=== PATIENT | male | born 1965 | race Caucasian/White ===

== ENCOUNTER 2019-05-17 05:25 | Inpatient (IN) ==
--- NOTE | 2019-03-19 08:43 | PAT Medication Instructions ---
Medication Instructions Date of Service March 19, 2019 Home Medications acetaminophen [Tylenol Extra Strength] 1,000 mg PO Q6H NEEDED aspirin [Aspir-81] 81 mg PO QAM hydrocodone-acetaminophen 1 tab PO Q6H NEEDED meloxicam 15 mg PO DAILY NEEDED tramadol 50 mg PO Q6H NEEDED ASK your surgeon for instructions meloxicam 15 mg PO DAILY NEEDED Take morning of surgery With a small sip of water, OTHERWISE NOTHING TO EAT OR DRINK AFTER MIDNIGHT: aspirin [Aspir-81] 81 mg PO QAM acetaminophen [Tylenol Extra Strength] 1,000 mg PO Q6H NEEDED (if needed) hydrocodone-acetaminophen 1 tab PO Q6H NEEDED (if needed; stop 4 hours before surgery) tramadol 50 mg PO Q6H NEEDED (if needed; stop 4 hours before surgery) Take evening before surgery acetaminophen [Tylenol Extra Strength] 1,000 mg PO Q6H NEEDED (if needed) hydrocodone-acetaminophen 1 tab PO Q6H NEEDED (if needed) tramadol 50 mg PO Q6H NEEDED (if needed) Other Notes If you have any questions please call us at [phone] or [phone] or [phone] or [phone]
--- NOTE | 2019-03-19 11:20 | Anesthesiology Consultation ---
Date of Service March 19, 2019 Assessment & Plan (1) Encounter for pre-operative examination: - No previous anesthesia records with intubations. - Does need updated labs prior to surgery. Will order for day of surgery. Chart Review Chart Review: Acceptable Risk for Surgery and Patient seen in Pre Admission Testing Consults Requested medical (Dr. Patel (04/30)) Patient was seen by PCP on 04/30 for preoperative clearance. Per note from this visit, "Patient will undergo bilateral hip replacement on 05/17. He currently is able to tolerate 4 METS of activity without cardiopulmonary symptoms, but is limited by his hip disease. He had pre-op evaluation at [facility] but I do not have access to this. If no significant issues on these studies, he will be medically maximize for OR." Teaching & Discussion Pre-Anesthesia Teaching/Discussion Notes: Instructed NPO after midnight before surgery, except medications with 15 cc of water. Medication instructions provided according to the PAT guidelines. History Surgery Operation Date: 05/09/19 10:35 Proposed Procedures p Right Total Hip Arthroplasty - Mason Uriarte MD Operation Date: 05/17/19 07:00 Proposed Procedures p Right Total Hip Arthroplasty - Cehco Pérez MD Operation Date: 05/17/19 09:20 Proposed Procedures p Bilateral Total Hip Arthroplasty Anterior - Sy Alberto DO Height/Weight Height: 5 ft 10.5 in Weight: 92.5 kg Allergies Allergy/AdvReac Type Severity Reaction Status Date / Time No Known Allergies Allergy Unknown Verified 03/16/19 14:08 Medications Home Medications Medication Instructions Recorded Confirmed Last Taken acetaminophen [Tylenol Extra 1,000 mg PO Q6H PRN 03/16/19 03/16/19 Unknown Strength] aspirin [Aspir-81] 81 mg PO QAM 03/16/19 03/16/19 Unknown hydrocodone-acetaminophen 1 tab PO Q6H PRN 03/16/19 03/16/19 Unknown meloxicam 15 mg PO DAILY PRN 03/16/19 03/16/19 Unknown tramadol 50 mg PO Q6H PRN 03/16/19 03/16/19 Unknown Past Medical History Medical History Hypertension BP RUNNING HIGHER CURRENTLY-NO MEDS Osteoarthritis Exercise / Class Metabolic Activity II 4-5 Yardwork/Stairs/Walk up hill (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 Was able to easily climb FOS due to hip pain. Denies CP or SOB. ) Past Family History Family History Mother Family history of diabetes mellitus Past Surgical History Surgical History History of hand surgery RIGHT-TENDONS History of urinary tract surgery REPAIR/RECONSTRUCTION URETHRAL SURGERY Past Anesthesia History No Hx of Anesthesia Complications and No Family Hx of Anesthesia Complications History of PONV No Hx of PONV and No Hx of Motion Sickness Social History Smoking Status: Current every day smoker tobacco type: cigarettes and smokeless tobacco Smoking cigarettes per day: 10 CIGS A DAY x 25-30 years Do You Dip or Chew Tobacco: Yes (1 CAN EVERY 2 DAYS X 40 YEARS) Hx Alcohol Use: Yes Alcohol type: beer, wine and hard liquor alcohol intake frequency: 3 or more drinks per day Alcohol Intake Frequency Comment: 4-5 DRINKS PER DAY Hx Substance Use: No Review of Systems Patient denies chest pain, shortness of breath, dyspnea on exertion, reflux, cough, wheezing, palpitations. +Joint Pain (Hip) Physical Exam Vital Signs BP: 157/94 P: 61 R: 18 T: 98.5 SPO2: 98% on RA ENMT Thyromental Distance: > or= 3.5 Finger Breadths (4) Mallampati Class: II Neck normal visual inspection and trachea midline; neck extension not limited Respiratory normal respiratory effort Auscultation: lungs clear to auscultation bilaterally Cardiovascular Rate/Rhythm: regular rate and regular rhythm Heart Sounds: no murmur Vessels: no carotid bruit Neurologic moves all extremities Psychiatric Orientation: alert and oriented x 3 Testing Laboratory Results 03/19/19 12:09 03/19/19 12:09 03/19/19 03/19/19 03/19/19 12:09 12:09 12:09 PT 10.3 INR 1.0 APTT 27.5 Hemoglobin A1c 5.5 Urine Color Urine Appearance Urine pH Ur Specific [place] Urine Protein Urine Glucose (UA) Urine Ketones Urine Nitrite Ur Leukocyte Esterase Urine WBC (Auto) Urine RBC (Auto) U Hyaline Cast (Auto) U Epithel Cells (Auto) Urine Bacteria (Auto) Blood Type B Positive Antibody Screen NEGATIVE 03/19/19 Unknown PT INR APTT Hemoglobin A1c Urine Color Yellow Urine Appearance Turbid A Urine pH 8.0 H Ur Specific [place] 1.019 Urine Protein Negative Urine Glucose (UA) Negative Urine Ketones Negative Urine Nitrite Negative Ur Leukocyte Esterase 1+ H Urine WBC (Auto) >30 H Urine RBC (Auto) 10-30 H U Hyaline Cast (Auto) 1-5 U Epithel Cells (Auto) 10-20 H Urine Bacteria (Auto) Negative Blood Type Antibody Screen Electrocardiogram Date: 03/19/19 Findings: + SB @ (57) and + no change from (03/07/13) Chest X-Ray Date: 03/19/19 Findings: + NAD FINDINGS: The bones soft tissues and hemidiaphragms are normal. The cardiomediastinal silhouette is normal. The lungs are clear. The pulmonary vasculature is normal. IMPRESSION: Negative chest.
--- NOTE | 2019-03-19 12:40 | XRay Report ---
XR chest Pre-admission PA/Lat CLINICAL HISTORY: pat preoperative COMPARISON STUDY: 03/07/2013 FINDINGS: The bones soft tissues and hemidiaphragms are normal. The cardiomediastinal silhouette is n ormal. The lungs are clear. The pulmonary vasculature is normal. IMPRESSION: Negative chest. The above report was generated using voice recognition software. It may contain grammatical, syntax or spelling errors. Electronically signed by: Iván Barclay M.D. 03/19/2019 12:39 PM
[2019-03-19 13:13] LABS: Basophils # (auto) 0.01 K/uL (0-0.2); Basophils % (auto) 0.1 %; Eosinophils # (auto) 0.08 K/uL (0-0.5); Hematocrit (blood only) 46.5 % (42-52); Hemoglobin 15.8 g/dL (14.0-18.0); Immature Granulocytes # (auto) 0.01 K/uL (0.00-0.02); Immature Granulocytes % (auto) 0.1 %; Lymphocytes # (auto) 1.11 K/uL (1.2-3.4); Lymphocytes % (auto) 14.2 %; Mean Corpuscular Volume 93.6 fL (80-100); Monocytes # (auto) 0.83 K/uL (0.11-0.59); Monocytes % (auto) 10.7 %; Neutrophils # (auto) 5.75 K/uL (1.4-6.5); Neutrophils % (auto) 73.9 %; Platelet Count 250 K/uL (130-400); RDW Coefficient of Variation 13.9 % (11.5-14.5); RDW Standard Deviation 47.8 fL (36.4-46.3); Red Blood Count 4.97 M/uL (4.7-6.1); White Blood Count 7.79 K/uL (4.8-10.8)
[2019-03-19 13:24] LABS: Partial Thromboplastin Time 27.5 Seconds (21.0-31.0); Prothrombin Time 10.3 Seconds (9.0-12.0)
[2019-03-19 13:29] LABS: Estimated Average Glucose 111 mg/dl; Hemoglobin A1C 5.5 % (4.5-5.6)
[2019-03-19 13:30] LABS: Albumin Level 3.8 gm/dl (3.4-5.0); BUN Creatinine Ratio 17.9 (10-20); Calcium 9.4 mg/dl (8.5-10.1); Creatinine Clr Calc Pharmacy 123.1 ml/min; Est GFR (African American) 118.2; Potassium 4.7 mmol/L (3.5-5.1)
[2019-03-19 14:12] LABS: Appearance Urine Turbid (Clear); Bacteria Urine Automated Negative (Negative); Bilirubin Urine Negative (Negative); Blood Urine 1+ (Negative); Color Urine Yellow; Glucose Urine UA Negative (Negative); Ketones Urine Negative (Negative); Leukocyte Esterase Urine 1+ (Negative); Nitrite Urine Negative (Negative); Protein Urine Negative (Negative); Specific Gravity Urine 1.019 (1.000-1.030); Urobilinogen Urine Negative (Negative); WBC Urine Automated >30 /hpf (0-5)
--- NOTE | 2019-05-16 15:06 | History & Physical Report ---
Date of Service May 16, 2019 Assessment & Plan (1) Degenerative joint disease of left hip: (2) Degenerative joint disease of right hip: (3) Bilateral hip joint arthritis: I have indicated the patient for bilateral anterior total hip replacements. The risks, benefits and complications of surgery were explained to the patient which include but not limited to infection, acute blood loss, DVT/PE, injury to nerves, vessels, bone, soft tissue, arthrofibrosis, chronic pain, failure of the prosthesis, hip dislocation, leg length discrepancy, need for additional surgery, cardiac and pulmonary events and . The patient wished to proceed with surgery and informed consent was obtained at this time. We will plan for Lovenox post-operatively for DVT prophylaxis. Upon discharge the patient will be discharged home with home health services. Appropriate clearances by PCP were obtained. History of Present Illness Chief Complaint: Bilateral hip pain/djd Primary Care Provider: Mercedez Patel DO The patient is a 54 year old male who presents with complaints of severe bilateral hip pain and DJD. The patient has failed outpatient conservative treatments to this point which included NSAIDs, corticosteroid injection R hip, declined L hip injection, home exercise, walking program, PT. The patient's pain and limited function have progressed to the point where they severely hinder their activities of daily living and they no longer tolerate exercise programs. They are requesting to proceed with total hip replacement surgery. Allergies Allergy/AdvReac Type Severity Reaction Status Date / Time No Known Allergies Allergy Unknown Verified 05/17/19 05:50 Home Medications Home Medications Medication Instructions Recorded Confirmed Type acetaminophen [Tylenol Extra 1,000 mg PO Q6H PRN 03/16/19 05/17/19 History Strength] aspirin [Aspir-81] 81 mg PO QAM 03/16/19 05/17/19 History hydrocodone-acetaminophen 1 tab PO Q6H PRN 03/16/19 05/17/19 History meloxicam 15 mg PO DAILY PRN 03/16/19 05/17/19 History tramadol 50 mg PO Q6H PRN 03/16/19 05/17/19 History Past Med/Surg History Medical History Hypertension BP RUNNING HIGHER CURRENTLY-NO MEDS Osteoarthritis Surgical History History of hand surgery RIGHT-TENDONS History of urinary tract surgery REPAIR/RECONSTRUCTION URETHRAL SURGERY Family History Mother Family history of diabetes mellitus Social History Preferred Language: Panamanian Communication Ability: Effective Construction Safety Manager Required: No Beliefs That Will Affect Care: None Current Living Situation: Spouse Other Information That Helps Us Care for You: No Feels Safe at Home: Yes Safety Concerns: Feels Safe At This Time Smoking Status: Current every day smoker Tobacco Type: cigarettes and smokeless tobacco Cigarettes Per Day: 10 CIGS A DAY x 25-30 years Do You Dip or Chew Tobacco: Yes (1 CAN EVERY 2 DAYS X 40 YEARS) Smoking End Date: 10 CIGS A DAY Second Hand Exposure: No Hx Alcohol Use: Yes Alcohol type: beer, wine and hard liquor Hx Substance Use: No Review of Systems Review of Systems: All systems reviewed & are unremarkable except as noted in HPI & below Constitutional: as per Subjective / HPI Physical Exam Physical Exam: RLE NVSI +EHL/FHL/TA/GS SILT grossly, +2 DP pulse, compartments soft NT, limited painful ROM, antalgic gait LLE NVSI +EHL/FHL/TA/GS SILT grossly, +2 DP pulse, compartments soft NT, limited painful ROM, antalgic gait Constitutional: WD/WN, vitals as above Eyes: PERRL, conjunctivae normal, anicteric sclerae ENMT: external ear and nose normal, oropharynx normal Neck: trachea midline, no thyromegaly Respiratory: normal respiratory effort, lungs clear to auscultation Cardiovascular: RRR, no murmur, no edema Gastrointestinal (Abdomen): normal bowel sounds, soft, nontender, no hepatosplenomegaly Musculoskeletal: no cyanosis or clubbing, extremities motor strength 5/5 Skin: no rashes, warm and dry Psychiatric: A+Ox3, euthymic affect Lymphatic: no cervical or axillary lymphadenopathy Results & Data Diagnostic Findings Multiple views of bilateral hips demonstrates severe DJD with complete loss of the joint space. +osteophytes, +sclerosis, +subchondral cysts.
--- OUTSIDE RECORDS SUMMARY | 2019-05-17 05:29 | External Medical Summary | Continuity of Care Document ---
:1965 Author Name Payal Chan Address Unavailable Unavailable , Care Team Providers Name Role Phone Yue NUNEZ [place]available [email or web address] Unavailable Unavailable Unavailable Unavailable Unavailable Problems Slowing of urinary stream (788.62) (R39.198) Incomplete emptying of bladder (788.21) (R33.9) Urethral stricture (598.9) Urinary hesitancy (788.64) (R39.11) Allergies and Adverse Reactions No Known Drug Allergies (Allergy) Medications No Reported Medications Refills: 0 Procedures History of Cystoscopy With Internal Urethrotomy Status: Completed History of Dilation Of Male Urethral Stricture Status: Completed History of Suprapubic Cystostomy Status: Completed Immunizations Immunizations not documented Family History Unknown Family Member Family history of Heart Disease (V17.49) Status: Active Comments: Family History Social History - Smoking Status Current every day smoker Plan of Treatment Planned Observations Planned Goals not documented Results No Known Results Results not documented Encounters Appointment; Mercedez Turner CRNP 16-Mar-2018 7:15 Encounter Diagnosis: Problem not documented
[2019-05-17] MEDS ORDERED: GABAPENTIN 900 MG DOSE PO SCH (06:00)
[2019-05-17] MEDS ORDERED: FAMOTIDINE 20 MG TAB PO SCH (06:00)
[2019-05-17] MEDS ORDERED: TRANEXAMIC ACID 1,000 MG **IV Pre-op IV SCH (06:00)
[2019-05-17] MEDS ORDERED: LR 500ML BOLUS, THEN 15ML/HR IV SCH (06:00)
[2019-05-17] MEDS ORDERED: CeleBREX 200 MG CAP PO SCH (06:00)
[2019-05-17] MEDS ORDERED: ACETAMINOPHEN 500 MG TAB PO SCH (06:00)
[2019-05-17] MEDS ORDERED: CEFAZOLIN 2000MG 2,000 MG/15 ML SYR IV SCH (06:00)
[2019-05-17] MEDS ORDERED: ROPIVACAINE 0.5% HCL/PF 150 MG, BUPIVACAINE 0.5% MPF 30 ML, EPINEPHrine 30MG/30ML (OR U... INFIL SCH (06:00)
[2019-05-17] MEDS ORDERED: dexAMETHasone 4 MG TAB PO SCH (06:00)
[2019-05-17 06:07] LABS: Hematocrit (blood only) 44.5 % (42-52); Hemoglobin 15.1 g/dL (14.0-18.0); Mean Corpuscular Volume 95.7 fL (80-100); Mean Platelet Volume 9.9 fL (7.4-10.4); Platelet Count 269 K/uL (130-400); RDW Coefficient of Variation 14.6 % (11.5-14.5); Red Blood Count 4.65 M/uL (4.7-6.1); White Blood Count 5.76 K/uL (4.8-10.8)
[2019-05-17 06:23] LABS: BUN Creatinine Ratio 25.5 (10-20); Calcium 8.7 mg/dl (8.5-10.1); Est GFR (African American) 122.7; Est GFR (Non-African American) 105.9; Potassium 4.1 mmol/L (3.5-5.1)
[2019-05-17] MEDS ORDERED: BUPIVACAINE 0.5 % 5 MG/1 ML PF 10ML VIAL ONE ×2 (06:26→11:08)
[2019-05-17] MEDS ORDERED: BACITRACIN INJ 50,000 UNIT VIAL ONE (06:29)
[2019-05-17] MEDS ORDERED: ORTHO JOINT ANESTHETIC ONE (06:29)
[2019-05-17 06:30] LABS: Mean Corpuscular Hgb Conc 33.9 g/dL (32-36)
[2019-05-17] MEDS ORDERED: TRANEXAMIC ACID 1,000 MG **IV Intra-op IV SCH (06:30)
--- NOTE | 2019-05-17 06:48 | History & Physical Bridge Note ---
Date of Service May 17, 2019 History & Physical Bridge Note I have examined the patient, reviewed the History & Physical and in the interval since the performance of the History & Physical I have noted the following changes of clinical significance: no changes noted
[2019-05-17] MEDS ORDERED: MIDAZOLAM HCL 1 MG/ML 2ML VIAL ONE ×3 (07:01→07:29)
[2019-05-17] MEDS ORDERED: fentaNYL citrate 100 MCG/2 ML VIAL ONE ×2 (07:01→10:22)
[2019-05-17] MEDS ORDERED: fentaNYL citrate 100 MCG/2 ML VIAL IV PRN (07:48)
[2019-05-17] MEDS ORDERED: ATROPINE SULFATE 0.1 MG/ML 10ML SYR IV PRN (07:48)
[2019-05-17] MEDS ORDERED: HYDROmorphone INJ 2 MG/ML SYR/VIAL IV PRN (07:48)
[2019-05-17] MEDS ORDERED: ePHEDrine sulfate 50 MG/ML AMP IV PRN (07:48)
[2019-05-17] MEDS ORDERED: HYDROmorphone INJ 2 MG/ML SYR/VIAL ONE (11:05)
[2019-05-17] MEDS ORDERED: DEXAMETHASONE SOD INJ 4 MG/ML VIAL ONE (11:08)
[2019-05-17] MEDS ORDERED: PROPOFOL IV EMULSION 10 MG/ML 20 ML VIAL IV ONE (11:08)
[2019-05-17] MEDS ORDERED: LIDOCAINE HCL 2% 2 ML VIAL/AMP(20MG/ML) INFIL ONE (11:08)
[2019-05-17] MEDS ORDERED: ONDANSETRON INJ 2 MG/ML 2 ML VIAL ONE (11:08)
[2019-05-17] MEDS ORDERED: CEFAZOLIN 250 MG/ML 1 GM VIAL ONE (11:18)
--- NOTE | 2019-05-17 11:26 | Post Operative Brief Note ---
Immediate Post Op Note v1 Date of Surgery May 17, 2019 Pre & Post Diagnosis Operation Date: 05/09/19 10:35 <No data on this case meets the specified criteria> Operation Date: 05/17/19 07:00 Pre-Op Diagnosis: Osteoarthritis Bilateral Hips Post-Op Diagnosis: Osteoarthritis Bilateral Hips Operation Date: 05/17/19 07:00 <No data on this case meets the specified criteria> Procedure Operation Date: 05/09/19 10:35 <No data on this case meets the specified criteria> Operation Date: 05/17/19 07:00 Actual Procedures p Anterior Bilateral Total Hip Arthroplasty(Bilateral) - Sy Alberto DO Operation Date: 05/17/19 07:00 <No data on this case meets the specified criteria> Surgeon Sy Alberto DO Engine Test Cell Technician Aj Wyatt Estimated Blood Loss 300 Findings Consistent with Post-Op Diagnosis Fluids 2000 CC LR Specimens left hip femoral head right hip femoral head Anesthesia Type Spinal MAC Complications none Disposition Disposition: Recovery Room Overlapping Procedure I was present for: the critical portions of procedure. I was immediately available: during the entire case. Back up surgeon: was not required during procedure.
--- NOTE | 2019-05-17 11:39 | Operative Report ---
Post Operative Report Pre & Post Diagnosis Operation Date: 05/09/19 10:35 <No data on this case meets the specified criteria> Operation Date: 05/17/19 07:00 Pre-Op Diagnosis: Osteoarthritis Bilateral Hips Post-Op Diagnosis: Osteoarthritis Bilateral Hips Operation Date: 05/17/19 07:00 <No data on this case meets the specified criteria> Procedure Operation Date: 05/09/19 10:35 <No data on this case meets the specified criteria> Operation Date: 05/17/19 07:00 Actual Procedures p Anterior Bilateral Total Hip Arthroplasty(Bilateral) - Sy Alberto DO Operation Date: 05/17/19 07:00 <No data on this case meets the specified criteria> Surgeon Sy Alberto DO Bead Flipper Aj Wyatt Estimated Blood Loss 300 Findings Consistent with Post-Op Diagnosis Fluids 2000 cc LR Specimens Left hip femoral head Right hip femoral head Anesthesia Type Spinal MAC Complications none Disposition Disposition: Recovery Room Indications The patient is a 54-year-old male who presents with severe progressive bilateral hip DJD who has failed outpatient conservative treatments. I indicated the patient for a anterior total hip replacement and the risks and benefits were explained in detail which include but not limited to infection, bleeding, blood clot, damage to surrounding bone, nerves, vessels, soft tissue, hip dislocation, failure of the prosthesis, leg length discrepancy, need for additional surgery and . The patient agreed to proceed with replacement of the hip and informed consent was obtained. Appropriate clearances were obtained. Description of Procedure Left hip COMPONENTS USED: [employer] hip system: Acetabulum size 56, femur size 10 high offset, femoral head 36 point +0, liner 5636, acetabular screw 25 mm x 1. Right hip COMPONENTS USED: [employer] hip system: Acetabulum size 56, femur size 10 high offset, femoral head 36+0, liner 5636, acetabular screw 25 mm x 1. DESCRIPTION OF PROCEDURE: Following satisfactory spinal anesthesia, the patient was placed supine on the OR table. The right leg was placed in the well leg faulkner and the left leg in the traction device. The left leg was prepared with ChloraPrep and draped sterilely. A surgical timeout was performed, patient identified and site jasson verified. Appropriate antibiotics were given. A standard anterior approach in the interval between the sartorius and tensor muscles was performed. Dissection was carried down through subcutaneous tissues. Electrocautery was utilized for hemostasis. Circumflex femoral vessels were identified, tied and ligated. The anterior capsular fat pad was removed and the capsulotomy was performed revealing the arthritic femoral neck and head. A femoral neck cut was made with reciprocating saw and the bone fragments removed. The acetabular self-retraining retractor was placed. Acetabular reaming was completed under fluoroscopic guidance, a 56 shell was impacted into an anatomic position and secured with a dome screw. Local anesthetic was placed and following irrigation, the polyethylene liner was placed. The femur was placed into position of external rotation, extension and adduction. Femoral canal was prepared up to the size 10 high offset. Trial reduction with a +0 neck length head showed good soft tissue tension, leg lengths restored, and good fit and fill of the proximal canal using fluoroscopic landmarks. The hip was dislocated. The trial component was removed. The final implant was placed. The hip was irrigated with sterile saline solution and reduced. A Betadine soak was performed. After 3 minutes, the hip was once more irrigated with copious sterile saline solution with bacitracin. Kamini-incisional soft tissue was injected utilizing [employer] which includes a combination of Ropivicaine 0.5% 150mg, Bupivicaine 0.5%/Epinephrine 1:200,000 30ml, Toradol 30mg, Dexamethasone 4mg, Ketamine 10mg, Clonidine 100mcg and NSS 30ml solution. The capsule was then closed with 1-0 Vicryl interrupted figure of eight sutures. The fascia was closed with a running suture of #1 Vicryl, the subcutaneous tissues with 2-0 Vicryl and the skin with a running subcuticular stitch of 3-0 V-Loc. Dermabond prineo and a dry dressing were applied. Upon completion of the left anterior total hip, the drapes were removed and the patient repositioned onto the OR table. Care was taken to inspect and pad all elliott prominences. The left leg was placed in the well leg faulkner and the right leg in the traction device. The right leg was prepared with ChloraPrep and draped sterilely. A second surgical timeout was performed, patient identified and site jasson verified. Appropriate antibiotics were given prior to the start of the case. A standard anterior approach in the interval between the sartorius and tensor muscles was performed. Dissection was carried down through subcutaneous tissues. Electrocautery was utilized for hemostasis. Circumflex femoral vessels were identified, tied and ligated. The anterior capsular fat pad was removed and the capsulotomy was performed revealing the arthritic femoral neck and head. A femoral neck cut was made with reciprocating saw and the bone fragments removed. The acetabular self-retraining retractor was placed. Acetabular reaming was completed under fluoroscopic guidance, a 56 shell was impacted into an anatomic position and secured with a dome screw. Local anesthetic was placed and following irrigation, the polyethylene liner was placed. The femur was placed into position of external rotation, extension and adduction. Femoral canal was prepared up to the size 10 high offset. Trial reduction with a +0 neck length head showed good soft tissue tension, leg lengths restored, and good fit and fill of the proximal canal using fluoroscopic landmarks. The hip was dislocated. The trial component was removed. The final implant was placed. The hip was irrigated with sterile saline solution and reduced. A Betadine soak was performed. After 3 minutes, the hip was once more irrigated with copious sterile saline solution with bacitracin. Kamini-incisional soft tissue was injected with the remaining [employer] [place] [employer] which includes a combination of Ropivicaine 0.5% 150mg, Bupivicaine 0.5%/Epinephrine 1:200,000 30ml, Toradol 30mg, Dexamethasone 4mg, Ketamine 10mg, Clonidine 100mcg and NSS 30ml solution. The capsule was then closed with 1-0 Vicryl interrupted figure of eight sutures. The fascia was closed with a running suture of #1 Vicryl, the subcutaneous tissues with 2-0 Vicryl and the skin with a running subcuticular stitch of 3-0 V-Loc. Dermabond prineo and a dry dressing were applied. The patient tolerated the procedure well and was transported to PACU in stable condition. Due to the complex nature of the procedure, the entire surgery was performed with the operational assistance of Aj Wyatt PA-C. The salon shampoo assistant, under direct supervision, was involved in the actual performance of all aspects of the surgical procedure including patient positioning, hemostasis, tissue retraction, instrument management and wound closure. I attest to the content of the Intraoperative Record and any orders documented therein. Any exceptions are noted below.
--- NOTE | 2019-05-17 12:20 | Orthopedic Progress Note ---
Date of Service May 17, 2019 Assessment & Plan (1) Degenerative joint disease of left hip: (2) Degenerative joint disease of right hip: (3) Bilateral hip joint arthritis: Status post bilateral anterior total hip arthroplasty -Ancef x24 -DVT prophylaxis: SCDs, teds, Lovenox daily -Weight-bear as tolerates bilateral lower extremities -PT/OT -Postoperative x-ray pending -A.m. labs -DC planning: Home with home health Subjective Post Operative Progress Note Patient seen in PACU, comfortable, denies complaints, pain well controlled, no acute issues. Still feeling effects of spinal anesthesia. Review of Systems Review of Systems: All systems reviewed & are unremarkable except as noted in HPI & below Constitutional: as per Subjective / HPI Physical Exam Physical Exam: RLE exam limited secondary to spinal anesthesia, +2 DP pulse, compartments soft NT, dressing cdi. LLE exam limited secondary to spinal anesthesia, +2 DP pulse, compartments soft NT, dressing cdi. Constitutional: WD/WN, vitals as above Results & Data Vital Signs (Past 12 Hours) Vital Signs Temp Pulse Pulse Pulse Resp BP BP 05/17/19 12:10 52 L 16 126/80 05/17/19 12:06 48 L 15 115/77 05/17/19 12:05 53 L 20 05/17/19 12:01 49 L 13 05/17/19 12:00 51 L 17 118/79 05/17/19 11:57 53 L 17 05/17/19 11:56 55 L 23 120/76 05/17/19 11:54 36.6 C 53 L 60 15 102/56 L 102/56 L 05/17/19 05:43 36.7 C 59 L 18 BP Pulse Ox 05/17/19 12:10 100 05/17/19 12:06 100 05/17/19 12:05 100 05/17/19 12:01 99 05/17/19 12:00 98 05/17/19 11:57 99 05/17/19 11:56 97 05/17/19 11:54 97 05/17/19 05:43 164/101 H 95
--- NOTE | 2019-05-17 12:23 | Anesthesiology Progress Note ---
Date of Service May 17, 2019 Anesthesia Post Procedure Vital Signs Vital Signs: Temp Pulse Pulse Pulse Resp BP BP 05/17/19 12:10 52 L 16 126/80 05/17/19 12:06 48 L 15 115/77 05/17/19 12:05 53 L 20 05/17/19 12:01 49 L 13 05/17/19 12:00 51 L 17 118/79 05/17/19 11:57 53 L 17 05/17/19 11:56 55 L 23 120/76 05/17/19 11:54 36.6 C 53 L 60 15 102/56 L 102/56 L 05/17/19 05:43 36.7 C 59 L 18 BP Pulse Ox 05/17/19 12:10 100 05/17/19 12:06 100 05/17/19 12:05 100 05/17/19 12:01 99 05/17/19 12:00 98 05/17/19 11:57 99 05/17/19 11:56 97 05/17/19 11:54 97 05/17/19 05:43 164/101 H 95 Pain Intensity Bilateral Hip: Pain Intensity: 7 Transfer of Care Handoff Completed per policy Notes Mental Status: alert / awake / arousable and participated in evaluation Patient Amnestic to Procedure: Yes Nausea / Vomiting: adequately controlled Pain: adequately controlled Airway Patency, RR, SpO2: stable & adequate BP & HR: stable & adequate Hydration State: stable & adequate Neuraxial Anesthesia: was administered and sensory block is resolving Anesthetic Complications: no major complications apparent
--- NOTE | 2019-05-17 12:27 | Fluoroscopy Report ---
FL hip LT 1V CLINICAL HISTORY: 54 years-old Male presenting with B/L HIP ARTHROPLASTY. TECHNIQUE: 2 fluoroscopic image(s) recorded as part of an intraoperative procedure. COMPARISON: None. FINDINGS/IMPRESSION: Postsurgical changes of total left hip arthroplasty. No malalignment. Please see surgical report for further details. Dose area product (mGy.cm^2): 2.7364. Fluoroscopy time: 49.1 seconds. Number or time of high level fluoroscopy (HLF), digital spot, or digital subtraction images: 0. Electronically signed by: Jelani Paris M.D. 05/17/2019 12:26 PM
--- NOTE | 2019-05-17 12:41 | XRay Report ---
XR hip BI w PEL1V CLINICAL HISTORY: 54 years-old Male presenting with IN PACU - A/P PELVIS and LATERAL HIP . TECHNIQUE: Single frontal view of the pelvis and crosstable lateral views of the bilateral hips were obtained. COMPARISON: None. FINDINGS: Postsurgical changes of total bilateral hip arthroplasty. No malalignment. No periprosthetic fracture . Soft tissue emphysema consistent with the recent postsurgical setting. Bony pelvis is otherwise int act. Sacroiliac joints and pubic symphysis congruent. No radiographic soft tissue abnormality. IMPRESSION: Expected postsurgical appearance status post total bilateral hip arthroplasties. Electronically signed by: Jelani Paris M.D. 05/17/2019 12:39 PM
--- NOTE | 2019-05-17 12:49 | Fluoroscopy Report ---
FL hip RT 1V CLINICAL HISTORY: 54 years-old Male presenting with B/L HIP ARTHROPLASTY. TECHNIQUE: 2 fluoroscopic image(s) recorded as part of an intraoperative procedure. COMPARISON: None. FINDINGS/IMPRESSION: Postsurgical changes of total bilateral hip arthroplasty. Please see surgical report for further details. Dose area product (mGy.cm^2): 3.0152. Fluoroscopy time: 1 minute 1.2 seconds. Number or time of high level fluoroscopy (HLF), digital spot, or digital subtraction images: 0. Electronically signed by: Jelani Paris M.D. 05/17/2019 12:47 PM
[2019-05-17] MEDS ORDERED: NALOXONE HCL 0.4 MG/1 ML VIAL/CARP IV PRN (12:58)
[2019-05-17] MEDS ORDERED: BISACODYL 10 MG SUPP PR PRN (12:58)
[2019-05-17] MEDS ORDERED: SODIUM CHLORIDE 0.9% 1000ML 1,000 ML IV SCH (12:58)
[2019-05-17] MEDS ORDERED: HYDROmorphone INJ 0.5 MG/0.5 ML SYR IV PRN (12:58)
[2019-05-17] MEDS ORDERED: METOCLOPRAMIDE HCL INJ 5 MG/ML 2 ML VIAL IV PRN (12:58)
[2019-05-17] MEDS ORDERED: ONDANSETRON INJ 2 MG/ML 2 ML VIAL IV PRN (12:58)
[2019-05-17] MEDS ORDERED: MAGNESIUM HYDROXIDE SUSP 30 ML UDC PO PRN (12:58)
[2019-05-17] MEDS: KETOROLAC 30 MG/ML VIAL IV SCH ×2 (14:12→20:55)
[2019-05-17] MEDS: ACETAMINOPHEN 500 MG TAB PO SCH ×2 (14:12→22:06)
[2019-05-17] MEDS: CEFAZOLIN 2000MG 2,000 MG/15 ML SYR IV SCH ×2 (15:28→23:34)
[2019-05-17] MEDS: DOCUSATE SODIUM 100 MG CAP PO SCH (20:56)
[2019-05-17] MEDS ORDERED: SENNA 8.6 MG TAB PO SCH (21:00)
[2019-05-18] MEDS: KETOROLAC 30 MG/ML VIAL IV SCH ×2 (02:55→08:21)
[2019-05-18] MEDS: OXYCODONE HCL IR 5 MG TAB (IMMEDIATE RELEASE) PO PRN ×3 (02:59→13:50)
[2019-05-18] MEDS: ACETAMINOPHEN 500 MG TAB PO SCH ×2 (06:04→13:48)
[2019-05-18 07:07] LABS: Eosinophils # (auto) 0.01 K/uL (0-0.5); Eosinophils % (auto) 0.1 %; Hematocrit (blood only) 36.1 % (42-52); Hemoglobin 12.1 g/dL (14.0-18.0); Immature Granulocytes # (auto) 0.05 K/uL (0.00-0.02); Immature Granulocytes % (auto) 0.3 %; Lymphocytes # (auto) 0.85 K/uL (1.2-3.4); Lymphocytes % (auto) 5.4 %; Mean Corpuscular Hgb Conc 33.5 g/dL (32-36); Mean Platelet Volume 10.1 fL (7.4-10.4); Monocytes # (auto) 1.78 K/uL (0.11-0.59); Monocytes % (auto) 11.4 %; Neutrophils # (auto) 12.91 K/uL (1.4-6.5); Neutrophils % (auto) 82.8 %; Platelet Count 225 K/uL (130-400); RDW Coefficient of Variation 14.3 % (11.5-14.5); RDW Standard Deviation 49.3 fL (36.4-46.3)
[2019-05-18 07:36] LABS: BUN Creatinine Ratio 25.2 (10-20); Calcium 8.3 mg/dl (8.5-10.1); Creatinine Clr Calc Pharmacy 122.5 ml/min; Est GFR (African American) 117.6; Est GFR (Non-African American) 101.5; Potassium 4.3 mmol/L (3.5-5.1)
[2019-05-18] MEDS: DOCUSATE SODIUM 100 MG CAP PO SCH (08:49)
[2019-05-18] MEDS ORDERED: MULTIVITAMIN TAB PO SCH (09:00)
[2019-05-18] MEDS ORDERED: ENOXAPARIN INJ 40 MG/0.4 ML SYR SQ SCH (09:00)
--- NOTE | 2019-05-18 09:13 | Anesthesiology Progress Note ---
Date of Service May 18, 2019 Anesthesia Post Procedure Vital Signs Vital Signs: Temp Pulse Pulse Pulse Pulse Resp BP 05/18/19 06:51 36.9 C 61 18 05/18/19 02:58 36.7 C 60 14 05/17/19 23:43 36.9 C 55 L 16 05/17/19 19:23 36.7 C 61 16 05/17/19 16:03 36.6 C 53 L 16 05/17/19 15:00 36.6 C 59 L 18 05/17/19 13:49 53 L 18 05/17/19 13:22 36.6 C 50 L 18 05/17/19 12:50 36.5 C 47 L 18 05/17/19 12:30 46 L 15 118/70 05/17/19 12:25 45 L 13 111/76 05/17/19 12:21 50 L 11 L 126/78 05/17/19 12:20 57 L 18 126/78 05/17/19 12:16 49 L 15 126/90 05/17/19 12:10 52 L 16 126/80 05/17/19 12:06 48 L 15 115/77 05/17/19 12:05 53 L 20 05/17/19 12:01 49 L 13 05/17/19 12:00 51 L 17 118/79 05/17/19 11:57 53 L 17 05/17/19 11:56 55 L 23 120/76 05/17/19 11:54 36.6 C 53 L 60 15 102/56 L BP BP Pulse Ox 05/18/19 06:51 166/95 H 98 05/18/19 02:58 145/88 H 98 05/17/19 23:43 153/89 H 97 05/17/19 19:23 155/98 H 97 05/17/19 16:03 132/81 99 05/17/19 15:00 142/89 H 97 05/17/19 13:49 135/87 99 05/17/19 13:22 129/84 99 05/17/19 12:50 129/78 100 05/17/19 12:30 100 05/17/19 12:25 100 05/17/19 12:21 100 05/17/19 12:20 100 05/17/19 12:16 100 05/17/19 12:10 100 05/17/19 12:06 100 05/17/19 12:05 100 05/17/19 12:01 99 05/17/19 12:00 98 05/17/19 11:57 99 05/17/19 11:56 97 05/17/19 11:54 102/56 L 97 Notes Mental Status: alert / awake / arousable and participated in evaluation Nausea / Vomiting: adequately controlled Pain: adequately controlled Airway Patency, RR, SpO2: stable & adequate BP & HR: stable & adequate Hydration State: stable & adequate Neuraxial Anesthesia: sensory block resolved
--- NOTE | 2019-05-18 09:21 | Progress Note ---
DATE: 05/18/2019 SUBJECTIVE: The patient is postop day 1 status post anterior bilateral total hip arthroplasties. Currently, the patient is sitting in his chair at the bedside and is awake and alert and oriented. He has no complaints at this time. He states that he does have a little more swelling on the left side than the right. He denies any shortness of breath, chest pain or lightheadedness and denies any calf tenderness. He is hoping to go home today. OBJECTIVE: VITAL SIGNS: Show BP 166/95, pulse 61, respirations 18, temperature 36.9. EXTREMITIES: Dressings are clean, dry and intact. Calves were soft, nontender. Neurovascularly intact. Toes were mobile and both hips appear located. Hemoglobin is 12.1. ASSESSMENT: Postoperative day 1 status post anterior bilateral total hip arthroplasties. PLAN: The patient will be started on PT, OT protocols today. We will continue DVT prophylaxis with enoxaparin, SCDs and CRISTÓBAL hose and continue current pain management. DISCHARGE PLANNING: The patient is hoping to go home today and we will see how he progresses with his physical therapy before making any decisions. Addedum: Progressing well. Pain controlled. Stable. Plan for dc today. VIANEY
[2019-05-18] MEDS ORDERED: CeleBREX 200 MG CAP PO SCH (21:00)
--- NOTE | 2019-05-20 10:00 | Discharge Summary ---
Date of Service May 20, 2019 Admission HPI Per Admitting Provider The patient is a 54 year old male who presents with complaints of severe bilateral hip pain and DJD. The patient has failed outpatient conservative treatments to this point which included NSAIDs, corticosteroid injection R hip, declined L hip injection, home exercise, walking program, PT. The patient's pain and limited function have progressed to the point where they severely hinder their activities of daily living and they no longer tolerate exercise programs. They are requesting to proceed with total hip replacement surgery. Principal Diagnosis Bilateral anterior total hip replacements Discharge Exam RLE NVSI +EHL/FHL/TA/GS SILT grossly, +2 DP pulse, compartments soft NT, dressing cdi. LLE NVSI +EHL/FHL/TA/GS SILT grossly, +2 DP pulse, compartments soft NT, dressing cdi. Constitutional WD/WN, vitals as above Discharge Data Allergies Allergy/AdvReac Type Severity Reaction Status Date / Time No Known Allergies Allergy Unknown Verified 05/17/19 05:50 Consultations 05/18/19 08:00 Consult Case Management - Discharge Planning Routine Procedures Performed Operation Date: 05/09/19 10:35 <No data on this case meets the specified criteria> Operation Date: 05/17/19 07:00 Actual Procedures p Anterior Bilateral Total Hip Arthroplasty(Bilateral) - Sy Alberto DO Operation Date: 05/17/19 07:00 <No data on this case meets the specified criteria> Ordered Studies 05/17/19 07:00 FL fluoroscopy <1hr Routine FL hip LT 1V Routine FL hip RT 1V Routine Hospital Course (1) Degenerative joint disease of left hip: (2) Degenerative joint disease of right hip: (3) Bilateral hip joint arthritis: The patient is a 54 -year-old male who presents with long standing history of severe bilateral hip DJD and failed outpatient conservative treatments including NSAIDs, bracing, injections and , physical therapy, home walking/exercise program. The patient's symptoms have progressed to the point where it has been difficult to perform even normal activities of daily living. I indicated the patient for a bilateral anterior total hip arthroplasty, the risks, benefits and complications of the procedure include but not limited to infection, bleeding, damage to bone, nerves, vessels, surrounding soft tissue, may develop blood clots, loss of function, leg length discrepancy, dislocation, failure of the components, loosening of the components, the need for additional surgery and . The patient wished to proceed with surgery at this time and informed consent was obtained. Hospital Course: On 05/17/19 the patient was taken to the operating room, adequate anesthesia administered and underwent bilateral anterior total hip arthroplasty. The patient tolerated the procedure well and was taken to the PACU in stable condition. Post-operatively the patient was started on a DVT ppx medication and given appropriate IV antibiotics. Consults were placed to physical therapy, occupational therapy and case management. On POD#1, the patient did well overnight and their pain was well controlled. Labs were drawn and the Hgb was 12.1. Post operative drop in hgb due to [place]-operative blood loss and dilutional effect. Patient asymptomatic. The patient progressed well with PT. Dressings were changed at this time and the incision was clean, dry and intact. The patients hospital stay was relatively uneventful and they were deemed stable by the orthopedic team and consultants to be discharged home with on 05/18/19. Discharge Instructions: Upon discharge the patient may weight bear as tolerates through their operative extremities. They were instructed to keep the incision clean and dry at all times. The patient may shower but should not submerge the incision, avoid bathing, pools and hot tubes. The patient was given a script for pain medication and should take as instructed. The patient was given a script for DVT ppx Lovenox 40mg daily and should take as directed. The patient was instructed to not drive or travel for long distances until cleared to do so. If the patient develops any symptoms of fevers, chills, nausea, vomiting, increased redness, swelling, pain or drainage from the surgical site, they should notify the office and/or proceed to the nearest emergency room. The patient should follow up in 10-14 days after surgery for their routine post-operative follow-up appointment and should call the office to confirm the date and time. Status post bilateral anterior total hip arthroplasty -Ancef x24 -DVT prophylaxis: SCDs, teds, Lovenox daily -Weight-bear as tolerates bilateral lower extremities -PT/OT -Postoperative x-ray pending -A.m. labs -DC planning: Home with home health Total Time Total Time Spent Total Time Spent (In Minutes): 30 minutes Total Time Includes: Examination of the Patient, Discharge Planning, Medication Reconciliation and Communication With Other Providers Discharge Plan Discharge Items Patient Disposition: Home - Home Health Services Reason For Visit: BILATERAL HIP OSTEOARTHRITIS Discharge Diagnosis: Bilateral anterior total hip replacements Condition: Good Discharge Goals: Decrease discomfort, Improve function, Increase independence and Therapeutic intervention Activity: Per 'Additional Instructions' section Lifting: Wait until after follow-up appointment Bathing Comment: No bathing, pools or hot tubs Sexual Activity: Wait until after follow-up appointment Exercise/Sports: Wait until after follow-up appointment Driving/Machine Use Comment: No driving till cleared by your surgeon Weightbearing: Left weightbearing and Right weightbearing Non-emergency contact: Primary Care Provider and Surgeon Call non-emergency contact if: you have any medication questions, your symptoms worsen, your pain is not controlled, your pain is worsening, your pain is unusual for you, your pain is concerning for you, you have a fever, your temperature is above 101, your wound has increased redness, your wound has increased drainage and your wound pain has increased Follow-up/Referrals: Mercedez Patel DO [Primary Care Provider] - Diet: Regular Addtl Provider Instructions: ACTIVITY RECOMMENDATIONS: SELF CARE INSTRUCTIONS AFTER TOTAL HIP REPLACEMENT : Direct Anterior Approach Until the incision and soft tissues around your hip have healed, there is a possibility that the hip prosthesis could dislocate. A. Hip flexion ( Up & Down out of chair or steps ) may be difficult. This is normal. B. Numbness in front of the thigh is also normal for a few weeks. C. Use hand rails when walking on stairs. D. Wear low heeled shoes with non-slip soles. E. Be sure that your floors are free of things that could trip you - throw rugs, electrical cords, small objects. Avoid wet and waxed floors, especially with crutches and canes. F. Try to walk several times a day with rest periods between. G. Continue with all the exercises taught to you in the hospital. Again, make walking a part of your daily routine. SPECIAL CARE INSTRUCTIONS: VERY IMPORTANT TO READ AND REVIEW A. You may still be at risk for phlebitis and blood clots. 1. Wear surgical stockings (CRISTÓBAL hose) for 2 weeks after surgery to improve circulation and reduce swelling. 2. Take Lovenox 40mg daily for 4 weeks or as directed by your doctor. This is your blood thinner. 3. High risk patients may be prescribed a stronger blood thinner if necessary. 4. If you are on Coumadin normally, your family doctor/food service specialist should monitor your blood work. Expect a phone call the day of or the day after bloodwork is drawn to adjust your dosage. B. You must take antibiotics before having dental work, bladder, bowel and other surgery. Your doctor will provide you with a permanent card to carry describing precautions. C. Call [facility] [place] if you have a fever, redness or swelling around the incision, cloudy drainage from incision, or sudden increase in pain in your hip, not relieved by your regular pain medication. D. Please call the office at if you have any concerns or questions about your operation or recovery. * YOU MAY SHOWER, NO TUB BATHS UNTIL CLEARED BY YOUR DOCTOR. - Keep an extra close eye on the top portion of your incision. Be sure to keep clean & dry. * WEAR CRISTÓBAL HOSE 20 HOURS PER DAY FOR 2 WEEKS. * YOU MAY PROGRESS FROM A WALKER, TO A CANE, TO INDEPENDENT AT YOUR OWN PACE. * MOST PATIENTS WILL HAVE HOME NURSING FOR THERAPY. IF YOU DECIDE TO DO OUTPATIENT PHYSICAL THERAPY, PLEASE SCHEDULE THIS 3 TIMES PER WEEK. * DERMABOND Prineo- This is a mesh tape dressing that is covered with glue. It should remain in place until the incision is properly healed, usually 10-14 da ys. This dressing is designed to naturally slough off. You may trim the excess mesh tape as it peels off. Incision may be briefly wet in a shower. Dry immediately by blotting with a clean, dry towel. Do not bath or swim until instructed by your doctor. Do not scratch, rub, or pick at the dressing. Do not apply any topical ointments or lotions until dressing is completely removed and/or instructed by your doctor. There may be a small piece of suture material at one end of your incision. Do not pull or trim this. If it is bothersome or catching on clothing, you may cover it with a band-aid. FOLLOW UP VISIT: If appointment is not already scheduled: Please call [facility] to make a follow-up appointment for 2 weeks after your surgery at . Follow up with your Primary Care Physician for Blood Pressure check in the next week. Prescriptions: New celecoxib [Celebrex] 200 mg Capsule 200 mg PO BID PRN (Reason: pain) Qty: 28 RF: 0 acetaminophen [Tylenol Extra Strength] 500 mg Tablet 1,000 mg PO Q8 PRN (Reason: pain) Qty: 90 RF: 0 enoxaparin 40 mg/0.4 mL Syringe 40 mg subcut Q24H Qty: 28 RF: 0 oxycodone 5 mg Tablet 5 mg PO Q6H MDD 6 tabs PRN (Reason: pain) Qty: 30 RF: 0 sennosides [Senokot] 8.6 mg Tablet 17.2 mg PO HS PRN (Reason: constipation) Qty: 28 RF: 0 Continued tramadol 50 mg Tablet 50 mg PO Q6H PRN (Reason: Pain) RF: 0 Discontinued meloxicam 15 mg Tablet 15 mg PO DAILY PRN (Reason: Pain) RF: 0 aspirin [Aspir-81] 81 mg Tablet,Delayed Release (Dr/Ec) 81 mg PO QAM RF: 0 hydrocodone-acetaminophen 5-325 mg Tablet 1 tab PO Q6H PRN (Reason: Pain) RF: 0 acetaminophen [Tylenol Extra Strength] 500 mg Tablet 1,000 mg PO Q6H PRN (Reason: Pain) RF: 0 Visit Report Forms: Smoking Cessation Stand-Alone Forms: [facility] [email or web address], Opioid Pain Management, Work/School Release (Inpt) Dereck/Other Patient Handouts: Enoxaparin Sodium Porcine Solution for injection, Safety Hip Into and Out Bed, Safety Hip Into and Out Car, Precautions Hip Discharge Orders: Discharge Order (Routine); Ordered 05/18/19 Ordered By: Black Roberts Admission Data Admit Date/Time: 05/17/19 12:08 Attending Provider: Sy Alberto Admit Provider: Sy Alberto Primary Care Provider: Mercedez Patel Service: Surgical Services Other Interventions: Discharge Summary Assessment (RN) Last Done: 05/18/19 13:18 DC Date/Time DO NOT enter until pt leaves facility: 05/18/19 14:42
== END 2019-05-18 14:42 | disposition home health service (06) | DRG 462 ==
LOC: ASU 05:25 → 3E 12:08

== ENCOUNTER 2023-03-30 20:47 | Inpatient (IN) ==
--- NOTE | 2023-03-30 21:07 | Emergency Department Note ---
Impression & Plan NSTEMI (non-ST elevated myocardial infarction), Nicotine dependence, Hypertensive emergency ED Provider Note NAME: KAREN TIAN AGE: 58 SEX: M : 1965 ARRIVES VIA: Walk-In INFORMANT: Patient, ED PROVIDER(S): Casey Li MD CHIEF COMPLAINT: Chest pain MEDICAL DECISION MAKING: Patient presents due to concern for chest pain. Initial EKG with no obvious STEMI but could have hyperacute T waves. Repeat EKG was ordered for approximate 10 to 15 minutes thereafter. Currently 5 out of 10 chest pain with no associated nausea vomiting or diaphoresis. IV was established and blood work was obtained. The patient was ordered full dose aspirin as well as sublingual nitro. Tylenol was also ordered to avoid possible headache from the nitro. Repeat EKG with no Initial blood work with a normal white count H&H and platelet count. The patient's kidney function is unremarkable. Initial troponin of 39.8. The patient has been chest pain-free COVID-negative. 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 I did speak with the on-call hospitalist service Dr. Krishnamurthy to see him he did message the on- call grain trader Dr. Moctezuma to inform them that the patient would be admitted to the medicine service. Critical Care: I have personally spent 45 minutes of critical care time in direct management of this patient. This includes bedside care, interpretation of diagnostic studies, and testing, discussion with consultants, patient, and family members, and other require inpatient management activities. This 45 minutes is in excess of all separately billable procedures. Prior /Outside records reviewed: None Differential diagnosis: Cardiac ischemia, aortic dissection, pulmonary embolism, pneumothorax, pneumonia, pericarditis, myocarditis, esophageal rupture, GERD, cholecystitis, pancreatitis, musculoskeletal, as well as other pathologies. Diagnostics, as interpreted by sd: ECG: Normal sinus rhythm, rate of 66 normal intervals normal axis no ST elevations with concavity, possible hyperacute T waves versus peaked T's V3 through V6. Repeat EKG interpreted by sd Sinus with PVCs, rate of 76, normal intervals normal axis, acuity of the T waves appear to be complete improved compared to prior completed Repeat EKG interpreted by me Sinus rhythm, rate of 63, normal intervals, left axis deviation no obvious ST elevations. T wave version in lead III. Cardiac monitoring: An order was placed for continuous cardiac monitoring. The monitor shows a rate of 72 with sinus rhythm. 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 The patient describes it as centralized and nonradiating although maybe he had clutched his left shoulder. Patient denies any overt exertional symptoms. Patient did not take anything for it at home. No cough or fever and the patient denies any prior history of known heart disease. Patient does have family history of heart attack and father and brother both in the 40s 65. The patient does chew and smoke tobacco and does drink alcohol. Patient states is currently 5 out of 10. Patient denies any infectious symptoms no leg swelling or calf pain. No prior history of blood clots PAST MEDICAL HISTORY: See Below PAST SURGICAL HISTORY: See Below SOCIAL HISTORY: See Below HOME MEDICATIONS: See Below ALLERGIES: See Below VITALS: See Below PHYSICAL EXAMINATION: GENERAL: NAD, wearing a mask, non-toxic. EYE EXAM: Normal conjunctiva. PERRL, no anisocoria and EOM's grossly intact w/o pain. NECK: Supple, no nuchal rigidity, no adenopathy, non-tender. No signs of meningismus. FROM of the neck with good chin to chest and neck extension. No stridor. LUNGS: Clear to auscultation. Normal chest wall mechanics. HEART: NSR, no MRG. ABDOMEN: Abdomen soft, non-tender, no masses, no rebound or guarding. BACK: No CVA TTP. SKIN: No rashes and no bruising. UPPER EXTREMITIES: Upper extremities are grossly normal. LOWER EXTREMITIES: Grossly normal, no edema. Negative Homans' sign bilaterally NEURO EXAM: A&O x3, cranial nerves II-XII grossly intact, normal speech, moves all 4 extremities. Past Med/Surg History Medical History Bilateral hip joint arthritis Hypertension started on lisinopril 12/07/21 Osteoarthritis Surgical History H/O bilateral hip replacements History of hand surgery RIGHT-TENDONS History of urinary tract surgery REPAIR/RECONSTRUCTION URETHRAL SURGERY Family History Mother Family history of diabetes mellitus Myocardial infarction Father Myocardial infarction Denies family history of Ovarian cancer Prostate cancer Breast cancer Colorectal cancer Social History Smoking Status: Current every day smoker Tobacco Type: Cigarettes Age Started Using Tobacco: 31; Cigarettes Per Day: 10 CIGS A DAY x 25-30 years; Second Hand Exposure: No; Do You Dip or Chew Tobacco: Yes; Tobacco Cessation Education Requested by Patient: No Hx Alcohol Use: Yes Alcohol type: hard liquor Hx Substance Use: No Preferred Language: Irish Communication Ability: Effective 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 Beliefs That Will Affect Care: None marital status: Current Living Situation: Spouse current occupational status: employed current occupation: self employeed How many Children do You have: 2 Other Information That Helps Us Care for You: No Feels Safe at Home: Yes Safety Concerns: Feels Safe At This Time Childhood Exposure to Second-Hand Smoke: Yes Diet: regular caffeine: Yes Dental Care, Regularly: Yes Physical Activity Frequency: Daily Seatbelt Use: never Sunscreen Use: No Assistive Devices: None Allergies Allergies Allergy/AdvReac Type Severity Reaction Status Date / Time No Known Allergies Allergy Unknown Verified 03/31/23 08:31 Home Meds Home Medications Medication Instructions Recorded Confirmed aspirin 81 mg tablet,delayed 81 mg PO DAILY 12/07/21 03/30/23 release Previous Rx's Medication Instructions Recorded acetaminophen 500 mg tablet 1,000 mg PO Q8 PRN pain #90 tabs 05/17/19 (Tylenol Extra Strength) Results & Data (ED) Vital Signs Vital Signs - 24 hr 03/30/23 21:00 03/30/23 21:14 03/30/23 21:15 Temperature 36.9 C Temperature Source Temporal Artery Scan Pulse Rate 66 64 Pulse Rate [Left Finger] 64 Pulse Rate from SpO2 Sensor Pulse Rhythm [Left Finger] Regular Pulse Strength [Left Finger] Normal Respiratory Rate 22 18 18 Respiratory Effort / Characteristics Non-Labored Non-Labored Respiratory Depth Normal Respiratory Pattern Regular Blood Pressure 231/151 H Blood Pressure Mean 177 Pulse Oximetry 99 100 100 Oxygen Delivery Method Room Air Room Air Room Air Sepsis Recent Fever Within 48 Hours No Sepsis New/Unexplained Change in Mental Status N/A Sepsis Action Taken by Nursing No Action Required 03/30/23 21:12 03/30/23 21:15 03/30/23 21:25 Temperature Temperature Source Pulse Rate 64 65 66 Pulse Rate [Left Finger] Pulse Rate from SpO2 Sensor 64 64 65 Pulse Rhythm [Left Finger] Pulse Strength [Left Finger] Respiratory Rate 16 20 15 Respiratory Effort / Characteristics Respiratory Depth Respiratory Pattern Blood Pressure 214/128 H Blood Pressure Mean 156 Pulse Oximetry 99 97 97 Oxygen Delivery Method Sepsis Recent Fever Within 48 Hours Sepsis New/Unexplained Change in Mental Status Sepsis Action Taken by Nursing 03/30/23 21:30 03/30/23 21:11 03/30/23 21:40 Temperature Temperature Source Pulse Rate 69 64 70 Pulse Rate [Left Finger] Pulse Rate from SpO2 Sensor 68 67 Pulse Rhythm [Left Finger] Pulse Strength [Left Finger] Respiratory Rate 16 17 Respiratory Effort / Characteristics Respiratory Depth Respiratory Pattern Blood Pressure 164/112 H 167/110 H Blood Pressure Mean 129 129 Pulse Oximetry 94 95 Oxygen Delivery Method Sepsis Recent Fever Within 48 Hours Sepsis New/Unexplained Change in Mental Status Sepsis Action Taken by Nursing 03/30/23 21:45 03/30/23 22:00 03/30/23 22:01 Temperature Temperature Source Pulse Rate 71 66 Pulse Rate [Left Finger] Pulse Rate from SpO2 Sensor 73 69 65 Pulse Rhythm [Left Finger] Pulse Strength [Left Finger] Respiratory Rate 16 15 Respiratory Effort / Characteristics Respiratory Depth Respiratory Pattern Blood Pressure 167/127 H 163/102 H Blood Pressure Mean 140 122 Pulse Oximetry 98 91 96 Oxygen Delivery Method Sepsis Recent Fever Within 48 Hours Sepsis New/Unexplained Change in Mental Status Sepsis Action Taken by Nursing 03/30/23 22:15 03/30/23 22:31 03/30/23 22:45 Temperature Temperature Source Pulse Rate 63 59 L 56 L Pulse Rate [Left Finger] Pulse Rate from SpO2 Sensor 62 59 L 58 L Pulse Rhythm [Left Finger] Pulse Strength [Left Finger] Respiratory Rate 14 18 15 Respiratory Effort / Characteristics Respiratory Depth Respiratory Pattern Blood Pressure 169/105 H 142/101 H 161/99 H Blood Pressure Mean 126 114 119 Pulse Oximetry 97 96 97 Oxygen Delivery Method Sepsis Recent Fever Within 48 Hours Sepsis New/Unexplained Change in Mental Status Sepsis Action Taken by Nursing 03/30/23 23:01 03/30/23 23:15 03/30/23 23:30 Temperature Temperature Source Pulse Rate 56 L 62 65 Pulse Rate [Left Finger] Pulse Rate from SpO2 Sensor 56 L 62 64 Pulse Rhythm [Left Finger] Pulse Strength [Left Finger] Respiratory Rate 15 16 15 Respiratory Effort / Characteristics Respiratory Depth Respiratory Pattern Blood Pressure 147/79 H 142/78 H 169/95 H Blood Pressure Mean 101 99 119 Pulse Oximetry 98 98 98 Oxygen Delivery Method Sepsis Recent Fever Within 48 Hours Sepsis New/Unexplained Change in Mental Status Sepsis Action Taken by Nursing 03/30/23 23:45 03/30/23 23:46 03/30/23 23:46 Temperature Temperature Source Pulse Rate 64 62 Pulse Rate [Left Finger] Pulse Rate from SpO2 Sensor 63 61 Pulse Rhythm [Left Finger] Pulse Strength [Left Finger] Respiratory Rate 17 17 Respiratory Effort / Characteristics Respiratory Depth Respiratory Pattern Blood Pressure 198/118 H Blood Pressure Mean 144 Pulse Oximetry 100 98 Oxygen Delivery Method Sepsis Recent Fever Within 48 Hours Sepsis New/Unexplained Change in Mental Status Sepsis Action Taken by Nursing 03/31/23 00:00 03/31/23 00:16 03/31/23 00:30 Temperature Temperature Source Pulse Rate 58 L Pulse Rate [Left Finger] Pulse Rate from SpO2 Sensor 58 L 63 71 Pulse Rhythm [Left Finger] Pulse Strength [Left Finger] Respiratory Rate 21 Respiratory Effort / Characteristics Respiratory Depth Respiratory Pattern Blood Pressure 116/90 150/97 H Blood Pressure Mean 98 114 Pulse Oximetry 98 98 95 Oxygen Delivery Method Sepsis Recent Fever Within 48 Hours Sepsis New/Unexplained Change in Mental Status Sepsis Action Taken by Nursing 03/31/23 00:46 Temperature Temperature Source Pulse Rate Pulse Rate [Left Finger] Pulse Rate from SpO2 Sensor 64 Pulse Rhythm [Left Finger] Pulse Strength [Left Finger] Respiratory Rate Respiratory Effort / Characteristics Respiratory Depth Respiratory Pattern Blood Pressure 147/105 H Blood Pressure Mean 119 Pulse Oximetry 96 Oxygen Delivery Method Sepsis Recent Fever Within 48 Hours Sepsis New/Unexplained Change in Mental Status Sepsis Action Taken by [facility] Medications Current Medication List: was personally reviewed by me Laboratory Data Attestation: I reviewed the patient's lab results. 03/30/23 21:11 03/30/23 21:11 Lab Results 03/30/23 03/30/23 03/30/23 Range/Units 21:11 21:11 21:11 WBC 6.53 (4.8-10.8) K/ul RBC 5.15 (4.70-6.10) M/uL Hgb 16.3 (14.0-18.0) g/dl Hct 47.8 (42.0-52.0) % MCV 92.8 (80.0-100.0) fL MCH 31.7 (25.0-34.0) pg MCHC 34.1 (32.0-36.0) g/dL RDW Std Deviation 46.9 H (36.4-46.3) fL RDW Coeff of Ben 13.6 (11.5-14.5) % Plt Count 263 (130-400) K/uL MPV 10.2 (9.4-12.4) fL Immature Gran % (Auto) 0.3 % Neut % (Auto) 65.8 % Lymph % (Auto) 20.1 % Dare % (Auto) 11.0 % Eos % (Auto) 2.5 % Baso % (Auto) 0.3 % Neut # (Auto) 4.30 (1.40-6.50) K/uL Lymph # (Auto) 1.31 (1.2-3.4) K/uL Dare # (Auto) 0.72 H (0.11-0.59) K/uL Eos # (Auto) 0.16 (0-0.50) K/uL Baso # (Auto) 0.02 (0-0.2) K/uL Immature Gran # (Auto) 0.02 (0.01-0.20) K/uL PT 10.5 (9.0-12.0) Seconds INR 1.0 (0.9-1.1) APTT 31.7 H (21.0-31.0) Seconds PTT Ratio 1.1 Sodium 135 L (136-145) mmol/L Potassium 3.9 (3.5-5.1) mmol/L Chloride 100 (98-107) mmol/L Carbon Dioxide 26 (21-32) mmol/L Anion Gap 9 (3-11) BUN 19 (6-23) mg/dl Creatinine 0.88 (0.6-1.4) mg/dl Est Cr Clr Drug Dosing 119.9 ml/min Est GFR ( Amer) 110.5 ml/min Est GFR (Non-Af Amer) 95.4 ml/min BUN/Creatinine Ratio 21.6 H (10-20) Glucose 91 (70-99(Fasting)) mg/dl Calcium 10.5 H (8.6-10.3) mg/dl Total Bilirubin 0.6 (0.2-1.0) mg/dl AST 28 (13-39) U/L ALT 38 (7-52) U/L Alkaline Phosphatase 83 (34-104) U/L Troponin I High Sens 39.8 H (0-20) pg/ml Total Protein 8.3 (6.0-8.3) gm/dl Albumin 4.9 (3.4-5.0) gm/dl Globulin 3.4 (2.5-4.0) gm/dl Albumin/Globulin Ratio 1.4 (0.9-2) Lipase 17 (11-82) U/L SARS-CoV-2, RNA, NAAT (NEGATIVE) 03/30/23 Range/Units 21:17 WBC (4.8-10.8) K/ul RBC (4.70-6.10) M/uL Hgb (14.0-18.0) g/dl Hct (42.0-52.0) % MCV (80.0-100.0) fL MCH (25.0-34.0) pg MCHC (32.0-36.0) g/dL RDW Std Deviation (36.4-46.3) fL RDW Coeff of Ben (11.5-14.5) % Plt Count (130-400) K/uL MPV (9.4-12.4) fL Immature Gran % (Auto) % Neut % (Auto) % Lymph % (Auto) % Dare % (Auto) % Eos % (Auto) % Baso % (Auto) % Neut # (Auto) (1.40-6.50) K/uL Lymph # (Auto) (1.2-3.4) K/uL Dare # (Auto) (0.11-0.59) K/uL Eos # (Auto) (0-0.50) K/uL Baso # (Auto) (0-0.2) K/uL Immature Gran # (Auto) (0.01-0.20) K/uL PT (9.0-12.0) Seconds INR (0.9-1.1) APTT (21.0-31.0) Seconds PTT Ratio Sodium (136-145) mmol/L Potassium (3.5-5.1) mmol/L Chloride (98-107) mmol/L Carbon Dioxide (21-32) mmol/L Anion Gap (3-11) BUN (6-23) mg/dl Creatinine (0.6-1.4) mg/dl Est Cr Clr Drug Dosing ml/min Est GFR ( Amer) ml/min Est GFR (Non-Af Amer) ml/min BUN/Creatinine Ratio (10-20) Glucose (70-99(Fasting)) mg/dl Calcium (8.6-10.3) mg/dl Total Bilirubin (0.2-1.0) mg/dl AST (13-39) U/L ALT (7-52) U/L Alkaline Phosphatase (34-104) U/L Troponin I High Sens (0-20) pg/ml Total Protein (6.0-8.3) gm/dl Albumin (3.4-5.0) gm/dl Globulin (2.5-4.0) gm/dl Albumin/Globulin Ratio (0.9-2) Lipase (11-82) U/L SARS-CoV-2, RNA, NAAT NEGATIVE (NEGATIVE) Administered Medications Aspirin (Aspirin 81 Mg Ectab) 81 mg PO [facility] Stop: 04/01/23 09:01 Last Admin: 03/31/23 07:45 Dose: 81 mg Documented By: Admin: 03/31/23 02:58 Dose: 81 mg Documented By: BARBARA Heparin Sodium/Dextrose (Heparin Sodium/Dextrose) 25,000 units in 500 mls @ 24 mls/hr IV .[id number] [facility]; Protocol Stop: 04/29/23 22:59 Last Titration: 03/31/23 15:07 Dose: 1,200 units/hr, 24 mls/hr Documented By: OMauro Co-signed By: KGY Titration: 03/31/23 07:10 Dose: 1,200 units/hr, 24 mls/hr Documented By: BARBARA Co-signed By: KGY Admin: 03/30/23 23:24 Dose: 1,000 units/hr, 20 mls/hr Documented By: MIKE Co-signed By: MWJim Metoprolol Succinate (Metoprolol Succ 25mg Ext Rel Tab) 12.5 mg PO [facility] Stop: 04/30/23 08:59 Last Admin: 03/31/23 07:46 Dose: 12.5 mg Documented By: INESSA Discontinued Medications Acetaminophen (Acetaminophen 500 Mg Tab) 1,000 mg PO NOW STA Stop: 03/30/23 21:18 Last Admin: 03/30/23 21:23 Dose: 1,000 mg Documented By: MIKE Aspirin (Aspirin Chew 324 Mg) 324 mg PO NOW STA Stop: 03/30/23 21:18 Last Admin: 03/30/23 21:22 Dose: 324 mg Documented By: MIKE Fentanyl Citrate (Fentanyl Citrate Pf 100 Mcg/2 Ml Vial) Confirm Administered Dose 100 mcg .ROUTE .STK-MED ONE Stop: 03/31/23 08:36 Last Increment: 03/31/23 09:22 Dose: 75 mcg Documented By: SONJA Heparin Sodium (Porcine) (Heparin Sod (Porcine) 1000 Unit/Ml) 4,000 units IV NOW ONE Stop: 03/31/23 07:31 Last Admin: 03/31/23 07:46 Dose: 4,000 units Documented By: INESSA Co-signed By: ALEJANDRA Heparin Sodium (Porcine) (Heparin (Porcine) 1000 Unit/Ml 10 Ml (Industrial Truck Operator Use Only)) Confirm Administered Dose 10,000 units .ROUTE .STK-MED ONE Stop: 03/31/23 08:36 Last Admin: 03/31/23 09:22 Dose: 5,000 units Documented By: SONJA Heparin Sodium/Sodium Chloride (Heparin In Nss Infusion 1000 Unit/500 Ml (2 U/Ml) Bag) Confirm Administered Dose 3,000 units IV .STK-MED ONE Stop: 03/31/23 08:36 Last Admin: 03/31/23 09:23 Dose: 3,000 units Documented By: BAKARI Magnesium Sulfate/Dextrose (Magnesium Sulfate / D5w) 1 gm in 100 mls @ 50 mls/hr IV Q2H [facility]LEIGH Stop: 03/31/23 09:14 Last Infusion: 03/31/23 09:38 Dose: 0 mls/hr Documented By: Admin: 03/31/23 07:28 Dose: 50 mls/hr Documented By: Infusion: 03/31/23 07:28 Dose: 50 mls/hr Documented By: Admin: 03/31/23 05:34 Dose: 50 mls/hr Documented By: BARBARA Lisinopril (Lisinopril 5 Mg Tab) 5 mg PO NOW ONE Stop: 03/31/23 05:01 Last Admin: 03/31/23 04:57 Dose: 5 mg Documented By: BARBARA Midazolam HCl (Midazolam Hcl 1 Mg/Ml 2ml Vial) Confirm Administered Dose 2 mg .ROUTE .STK-MED ONE Stop: 03/31/23 08:36 Last Increment: 03/31/23 09:23 Dose: 1 mg Documented By: SONJA Midazolam HCl (Midazolam Hcl 1 Mg/Ml 2ml Vial) Confirm Administered Dose 2 mg .ROUTE .STK-MED ONE Stop: 03/31/23 09:08 Last Admin: 03/31/23 09:24 Dose: 2 mg Documented By: SONJA Nicardipine HCl (Nicardipine Hcl Inj 2.5 Mg/Ml 10 Ml Amp) Confirm Administered Dose 25 mg .ROUTE .ST-MED ONE Stop: 03/31/23 08:36 Last Admin: 03/31/23 09:24 Dose: 25 mg Documented By: BAKARI Nitroglycerin (Nitroglycerin Sl 0.4 Mg/Tab Tab) 0.4 mg SL Q5M PRN PRN Reason: Chest Pain Stop: 04/29/23 21:16 Last Admin: 03/30/23 21:40 Dose: 0.4 mg Documented By: Admin: 03/30/23 21:34 Dose: 0.4 mg Documented By: Admin: 03/30/23 21:24 Dose: 0.4 mg Documented By: MIKE Nitroglycerin/Dextrose (Nitroglycerin/D5w 100mcg/Ml 20ml Syr) Confirm Administered Dose 2,000 mcg .ROUTE .[facility] ONE Stop: 03/31/23 08:37 Last Admin: 03/31/23 09:24 Dose: 2,000 mcg Documented By: BAKARI Potassium Chloride (Potassium Chloride Crtab 20 Meq Tabcr) 40 meq PO NOW STA Stop: 03/31/23 05:11 Last Admin: 03/31/23 05:34 Dose: 40 meq Documented By: BARBARA Rosuvastatin Calcium (Rosuvastatin Calcium 20 Mg Tab) 20 mg PO NOW ONE Stop: 03/31/23 05:01 Last Admin: 03/31/23 04:57 Dose: 20 mg Documented By: BARBARA Imaging Data Radiologist's Impression: Chest X-Ray 05/31/23 21:11 SINGLE VIEW CHEST CLINICAL HISTORY: Atypical chest pain. FINDINGS: An AP, portable, upright chest radiograph is compared to study dated 03/27/2019. The heart is mildly enlarged noting atherosclerotic calcification of the thoracic aorta. The pulmonary vasculature is noncongested. There is mild elevation of the right hemidiaphragm and bibasilar atelectasis. No airspace consolidation or large pleural effusion is identified. No pneumothorax is seen. The bony thorax is grossly intact. Arthritic change is seen in the shoulders. IMPRESSION: No acute cardiopulmonary abnormality. ACT 112: Negative or not required by law. Electronically signed by: Elijah Walsh M.D. 03/31/2023 7:08 AM Discharge Plan Visit Data Chief Complaint: Hypertension Stated Complaint: HBP,TIGHTNESS IN CHEST ED Provider: Casey Li Discharge Problem: NSTEMI (non-ST elevated myocardial infarction), Nicotine dependence, Hypertensive emergency Patient Disposition: Admitted As Inpatient Discharge Instructions Interventions: ED Discharge Assessment Last Done: 03/31/23 01:57
[2023-03-30] MEDS ORDERED: ACETAMINOPHEN 500 MG TAB PO STA (21:17)
[2023-03-30] MEDS ORDERED: ASPIRIN CHEW 324 MG PO STA (21:17)
[2023-03-30] MEDS: NITROGLYCERIN SL 0.4 MG/TAB TAB SL PRN ×3 (21:24→21:40)
[2023-03-30 22:04] LABS: Basophils # (auto) 0.02 K/uL (0-0.2); Basophils % (auto) 0.3 %; Eosinophils # (auto) 0.16 K/uL (0-0.50); Eosinophils % (auto) 2.5 %; Hematocrit (blood only) 47.8 % (42.0-52.0); Hemoglobin 16.3 g/dl (14.0-18.0); Immature Granulocytes # (auto) 0.02 K/uL (0.01-0.20); Immature Granulocytes % (auto) 0.3 %; Lymphocytes # (auto) 1.31 K/uL (1.2-3.4); Lymphocytes % (auto) 20.1 %; Mean Corpuscular Hemoglobin 31.7 pg (25.0-34.0); Mean Corpuscular Hgb Conc 34.1 g/dL (32.0-36.0); Mean Corpuscular Volume 92.8 fL (80.0-100.0); Mean Platelet Volume 10.2 fL (9.4-12.4); Monocytes # (auto) 0.72 K/uL (0.11-0.59); Neutrophils % (auto) 65.8 %; Platelet Count 263 K/uL (130-400); RDW Coefficient of Variation 13.6 % (11.5-14.5); RDW Standard Deviation 46.9 fL (36.4-46.3); Red Blood Count 5.15 M/uL (4.70-6.10); White Blood Count 6.53 K/ul (4.8-10.8)
[2023-03-30 22:23] LABS: Albumin Globulin Ratio 1.4 (0.9-2); Albumin Level 4.9 gm/dl (3.4-5.0); BUN Creatinine Ratio 21.6 (10-20); Bilirubin,Total 0.6 mg/dl (0.2-1.0); Calcium 10.5 mg/dl (8.6-10.3); Creatinine Clr Calc Pharmacy 119.9 ml/min; Est GFR (African American) 110.5 ml/min; Est GFR (Non-African American) 95.4 ml/min; Globulin 3.4 gm/dl (2.5-4.0); Potassium 3.9 mmol/L (3.5-5.1); Total Protein 8.3 gm/dl (6.0-8.3)
[2023-03-30 22:30] LABS: Troponin I High Sensitivity 39.8 pg/ml (0-20)
[2023-03-30 22:39] LABS: Partial Thromboplastin Ratio 1.1; Partial Thromboplastin Time 31.7 Seconds (21.0-31.0); Prothrombin Time 10.5 Seconds (9.0-12.0)
[2023-03-30] MEDS ORDERED: Heparin IV Adult Wt-Based Low-Dose *NO* Bolus Protocol IV ONE (22:53)
[2023-03-30] MEDS: HEPARIN SODIUM/DEXTROSE 25,000 UNITS/500 ML BAG IV SCH (23:24)
[2023-03-31] MEDS ORDERED: ACETAMINOPHEN 500 MG TAB PO PRN (02:17)
[2023-03-31] MEDS ORDERED: POLYETHYLENE (MIRALAX) 17 GM PACK PO PRN (02:17)
[2023-03-31] MEDS ORDERED: ALUMINUM/MAGNESIUM SUSP 30 ML UDC PO PRN (02:17)
[2023-03-31] MEDS ORDERED: NITROGLYCERIN SL 0.4 MG/TAB TAB SL PRN (02:17)
[2023-03-31] MEDS: ASPIRIN 81 MG ECTAB PO SCH ×2 (02:58→07:45)
[2023-03-31] MEDS ORDERED: ROSUVASTATIN CALCIUM 20 MG TAB PO ONE (05:00)
[2023-03-31] MEDS ORDERED: lisinopril 5 MG TAB PO ONE (05:00)
--- NOTE | 2023-03-31 05:00 | Communication Note ---
Date of Service: March 31, 2023 Pt troponin increased from 40 to 5400. Vitals 171/100, 69, 15, 36.3, 96% on RA. No chest pain, pt asleep at time I was alerted of troponin increase. Repeat EKG pending. Concern for NSTEMI based on initial presentation and now with increasing troponin. Given pt's risk factors of HTN, extensive smoking history and active tobacco use, obesity and FMH of early MO in first degree relatives, suspect he may need cardiac catheterization for further evaluation. I placed cardiology consult. I also ordered pt to be NPO in anticipation of potential catheterization. Rosuvastatin 20 mg and lisinopril 5 mg ordered to be given now. I held off on ordering metoprolol at present due to RN report of pt bradycardia, though sleeping. Metoprolol succinate 12.5 mg ordered for AM.
[2023-03-31] MEDS ORDERED: POTASSIUM CHLORIDE CRTAB 20 MEQ TABCR PO STA (05:10)
[2023-03-31] MEDS: MAGNESIUM SULFATE / D5W 1 GM/100 ML BAG IV SCH ×2 (05:34→07:28)
--- NOTE | 2023-03-31 05:36 | History & Physical Report ---
Date of Service March 31, 2023 Assessment & Plan (1) NSTEMI (non-ST elevated myocardial infarction): Plan: Patient presents to ED with complaints of acute onset of chest pain. Chest pain nonradiating and midsternal in location. Associated with no nausea vomiting but reports left shoulder discomfort Risk factors include hypertension and patient admits to smoking at least 20 years Family history significant for coronary artery disease. EKG does not show any ST changes and patient chest pain-free at this time. Initial high sensitive troponin 40 will trend levels Cardiology input from ED requested for possible cardiac catheterization. Transthoracic echo ordered Antiplatelet with aspirin close telemetry monitoring (2) Hypertension: Plan: Continue lisinopril add beta-blockade with metoprolol if heart rate permits Monitor blood pressure trend titrate meds as tolerated (3) Nicotine dependence: Plan: Patient admits to cigarette smoking for at least 20 years half pack a day Smoking cessation discussed with patient Nicotine replacement prn Admission and Anticipated Discharge Date Admission Date: March 31, 2023 History of Present Illness Chief Complaint: Patient presents to ED with complaints of chest pain Primary Care Provider: Fatmata Herron MD This is a 58-year-old male with past medical history significant history of hypertension, osteoarthritis who presents to the emergency department with complaints of chest pain. 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 Patient reports the pain is moderate to severe and nonradiating. Patient had some left shoulder discomfort as well associated with chest discomfort. Patient presented to the ED because he was concerned about the intensity of the pain and patient also reports that his family members has a history of cardiac disease. The time of evaluation in the ED patient chest pain and improved and 10 minutes after arrival to the ED patient reports improvement in chest pain. Patient denies any shortness of breath no fevers or chills reported no nausea vomiting reported Evaluation in the ED initially shows hyperacute T waves but no ST elevation noted. Repeat EKG did not show any ST or T wave changes. Initial high sensitive troponin elevated at 40. Cardiology contacted from ED Patient given aspirin and beta-jonathan is being admitted for further management of his chest pain with NSTEMI Allergies Allergy/AdvReac Type Severity Reaction Status Date / Time No Known Allergies Allergy Unknown Verified 03/30/23 22:44 Home Medications Medication Instructions Recorded Confirmed Type acetaminophen 500 mg tablet 1,000 mg PO Q8 PRN pain #90 tabs 05/17/19 03/30/23 Rx (Tylenol Extra Strength) aspirin 81 mg tablet,delayed 81 mg PO DAILY 12/07/21 03/30/23 History release Past Med/Surg History Medical History Bilateral hip joint arthritis Hypertension started on lisinopril 12/07/21 Osteoarthritis Surgical History H/O bilateral hip replacements History of hand surgery RIGHT-TENDONS History of urinary tract surgery REPAIR/RECONSTRUCTION URETHRAL SURGERY Family History Mother Family history of diabetes mellitus Myocardial infarction Father Myocardial infarction Denies family history of Ovarian cancer Prostate cancer Breast cancer Colorectal cancer Social History Smoking Status: Current every day smoker Tobacco Type: Cigarettes Age Started Using Tobacco: 31; Cigarettes Per Day: 10 CIGS A DAY x 25-30 years; Second Hand Exposure: No; Do You Dip or Chew Tobacco: Yes; Tobacco Cessation Education Requested by Patient: No Hx Alcohol Use: Yes Alcohol type: hard liquor Hx Substance Use: No Preferred Language: Kiswahili Communication Ability: Effective Legal Referee Required: No Beliefs That Will Affect Care: None marital status: Current Living Situation: Spouse current occupational status: employed current occupation: self employeed How many Children do You have: 2 Other Information That Helps Us Care for You: No Feels Safe at Home: Yes Safety Concerns: Feels Safe At This Time Childhood Exposure to Second-Hand Smoke: Yes Diet: regular caffeine: Yes Dental Care, Regularly: Yes Physical Activity Frequency: Daily Seatbelt Use: never Sunscreen Use: No Assistive Devices: Glasses Review of Systems Review of Systems: Constitutional-no fever or chills ENT-no blurred vision, no double vision, no epistaxis, no sore throat Respiratory- no shortness of breath noted with exertion. No wheezing Cardiac-presents with chest pain no palpitations GI-no nausea, vomiting, diarrhea, melena, hematochezia -no urinary retention, no urinary incontinence, no dysuria, no hematuria Musculoskeletal-no joint pain, no muscle tenderness Skin-no bruising, no rashes, no pruritus Neuro-no isolated weakness, no paresthesia, Physical Exam Physical Exam: Patient appears comfortable no chest pain at time of evaluation Head and ENT no thyroid enlargement trachea midline Cardiovascular S1-S2 are normal no S3 Lungs bilateral air entry fair no wheezing Abdomen soft nondistended no rebound tenderness Extremity shows trace edema Neurologically no focal deficits Skin shows no rash Results & Data Results & Data Vital Signs (Past 12 Hours) Vital Signs Temp Pulse Pulse Resp BP BP Pulse Ox 03/31/23 02:18 60 03/31/23 02:45 36.3 C L 69 15 171/100 H 96 03/31/23 01:46 56 L 14 149/90 H 96 03/31/23 01:30 61 15 154/105 H 96 03/31/23 01:15 151/98 H 95 03/31/23 01:45 57 L 03/31/23 01:00 157/108 H 95 03/31/23 00:46 147/105 H 96 03/31/23 00:30 150/97 H 95 03/31/23 00:16 116/90 98 03/31/23 00:00 58 L 21 98 03/30/23 23:46 62 17 98 03/30/23 23:46 198/118 H 03/30/23 23:45 64 17 100 03/30/23 23:30 65 15 169/95 H 98 03/30/23 23:15 62 16 142/78 H 98 03/30/23 23:01 56 L 15 147/79 H 98 03/30/23 22:45 56 L 15 161/99 H 97 03/30/23 22:31 59 L 18 142/101 H 96 03/30/23 22:15 63 14 169/105 H 97 03/30/23 22:01 66 15 163/102 H 96 03/30/23 22:00 71 16 91 03/30/23 21:45 167/127 H 98 03/30/23 21:40 70 17 167/110 H 95 03/30/23 21:11 64 03/30/23 21:30 69 16 164/112 H 94 03/30/23 21:25 66 15 214/128 H 97 03/30/23 21:15 65 20 97 03/30/23 21:12 64 16 99 03/30/23 21:15 64 18 100 03/30/23 21:14 64 18 100 03/30/23 21:00 36.9 C 66 22 231/151 H 99 O2 Del Method 03/31/23 02:18 03/31/23 02:45 Room Air 03/31/23 01:46 03/31/23 01:30 03/31/23 01:15 03/31/23 01:45 03/31/23 01:00 03/31/23 00:46 03/31/23 00:30 03/31/23 00:16 03/31/23 00:00 03/30/23 23:46 03/30/23 23:46 03/30/23 23:45 03/30/23 23:30 03/30/23 23:15 03/30/23 23:01 03/30/23 22:45 03/30/23 22:31 03/30/23 22:15 03/30/23 22:01 03/30/23 22:00 03/30/23 21:45 03/30/23 21:40 03/30/23 21:11 03/30/23 21:30 03/30/23 21:25 03/30/23 21:15 03/30/23 21:12 03/30/23 21:15 Room Air 03/30/23 21:14 Room Air 03/30/23 21:00 Room Air Laboratory Results Short CBC 03/30/23 Range/Units 21:11 WBC 6.53 (4.8-10.8) K/ul Hgb 16.3 (14.0-18.0) g/dl Hct 47.8 (42.0-52.0) % Plt Count 263 (130-400) K/uL BMP 03/30/23 21:11 Sodium 135 L Potassium 3.9 Chloride 100 Carbon Dioxide 26 BUN 19 Creatinine 0.88 Glucose 91 Calcium 10.5 H Liver Function 03/30/23 Range/Units 21:11 Total Bilirubin 0.6 (0.2-1.0) mg/dl AST 28 (13-39) U/L ALT 38 (7-52) U/L Alkaline Phosphatase 83 (34-104) U/L Albumin 4.9 (3.4-5.0) gm/dl Code Status & VTE Plan VTE Prophylaxis Plan VTE Prophylaxis will be ordered: Yes PG Care Time/CCT Total # of Minutes Spent Total Time Spent with Patient: Total time spent is greater than 50% in coordination of care (as documented) at patient's floor/unit and/or counseling patient: Coding Level of Care Code 43204 INT INP/OBS CARE MIN Diagnoses NSTEMI (non-ST elevated myocardial infarction) I21.4 Hypertension I10 Nicotine dependence F17.200
[2023-03-31] MEDS ORDERED: Heparin IV Adult Wt-Based Standard *NO* Bolus Protocol IV SCH (06:40)
[2023-03-31 06:52] LABS: Chol HDL Ratio 3.9 (0-5); Magnesium 2.1 mg/dl (1.7-2.4)
[2023-03-31] MEDS ORDERED: HEPARIN SODIUM/DEXTROSE 25,000 UNITS/500 ML BAG IV SCH (07:00)
[2023-03-31 07:04] LABS: Partial Thromboplastin Ratio 1.2; Partial Thromboplastin Time 33.3 Seconds (21.0-31.0)
--- NOTE | 2023-03-31 07:10 | XRay Report ---
SINGLE VIEW CHEST CLINICAL HISTORY: Atypical chest pain. FINDINGS: An AP, portable, upright chest radiograph is compared to study dated 03/27/2019. The heart i s mildly enlarged noting atherosclerotic calcification of the thoracic aorta. The pulmonary vasculatu re is noncongested. There is mild elevation of the right hemidiaphragm and bibasilar atelectasis. No airspace consolidation or large pleural effusion is identified. No pneumothorax is seen. The bony tho rax is grossly intact. Arthritic change is seen in the shoulders. IMPRESSION: No acute cardiopulmonary abnormality. ACT 112: Negative or not required by law. Electronically signed by: Elijah Walsh M.D. 03/31/2023 7:08 AM
[2023-03-31] MEDS ORDERED: HEPARIN SOD (PORCINE) 1000 UNIT/ML IV ONE ×2 (07:30→18:12)
[2023-03-31] MEDS: METOPROLOL SUCC 25MG EXT REL TAB PO SCH (07:46)
[2023-03-31 07:55] LABS: Troponin I High Sensitivity 9418.6 pg/ml (0-20)
--- NOTE | 2023-03-31 08:23 | Electrocardiogram Report ---
Test Reason : Blood Pressure : / mmHG Vent. Rate : 066 BPM Atrial Rate : 066 BPM P-R Int : 158 ms QRS Dur : 100 ms QT Int : 368 ms P-R-T Axes : 023 -37 017 degrees QTc Int : 385 ms Normal sinus rhythm Left axis deviation Acute Anterior infarct Abnormal ECG When compared with ECG of 19-MAR-2019 12:16, Criteria for Anterior infarct is now Present ST elevation now present in Anterior leads Confirmed by Derrick Soernson ([id number]) on 03/31/2023 8:22:59 AM Referred By: REFERRED SELF Confirmed By:Derrick Sorenson
--- NOTE | 2023-03-31 08:27 | Electrocardiogram Report ---
Test Reason : Blood Pressure : / mmHG Vent. Rate : 076 BPM Atrial Rate : 076 BPM P-R Int : 152 ms QRS Dur : 102 ms QT Int : 394 ms P-R-T Axes : -07 -43 -05 degrees QTc Int : 443 ms Sinus rhythm with occasional Premature ventricular complexes and PACs Left axis deviation Incomplete right bundle branch block Anterolateral infarct , age undetermined (cited on or before 30-MAR-2023) Abnormal ECG When compared with ECG of 30-MAR-2023 21:07, Premature ventricular complexes are now Present Serial changes of evolving Anterolateral infarct Present Confirmed by Derrick Sorenson ([id number]) on 03/31/2023 8:26:21 AM Referred By: REFERRED SELF Confirmed By:Derrick Sorenson
--- NOTE | 2023-03-31 08:27 | Electrocardiogram Report ---
Test Reason : Blood Pressure : / mmHG Vent. Rate : 063 BPM Atrial Rate : 063 BPM P-R Int : 154 ms QRS Dur : 096 ms QT Int : 394 ms P-R-T Axes : 019 -46 006 degrees QTc Int : 403 ms Sinus rhythm Incomplete right bundle branch block Left anterior fascicular block Anterolateral infarct , age undetermined (cited on or before 30-MAR-2023) Abnormal ECG When compared with ECG of 30-MAR-2023 21:07, Serial changes of evolving Anterolateral infarct Present Premature ventricular complexes no longer present Confirmed by Derrick Sorenson ([id number]) on 03/31/2023 8:27:02 AM Referred By: REFERRED SELF Confirmed By:Derrick Sorenson
--- NOTE | 2023-03-31 08:28 | Electrocardiogram Report ---
Test Reason : Blood Pressure : / mmHG Vent. Rate : 056 BPM Atrial Rate : 056 BPM P-R Int : 160 ms QRS Dur : 102 ms QT Int : 406 ms P-R-T Axes : -03 -31 -03 degrees QTc Int : 391 ms Sinus bradycardia with occasional Premature ventricular complexes Left axis deviation Anterolateral infarct , age undetermined (cited on or before 30-MAR-2023) Abnormal ECG When compared with ECG of 30-MAR-2023 22:06, Premature ventricular complexes are now Present Incomplete right bundle branch block is no longer Present Confirmed by Derrick Sorenson ([id number]) on 03/31/2023 8:27:42 AM Referred By: REFERRED SELF Confirmed By:Derirck Sorenson
[2023-03-31 08:30] LABS: Estimated Average Glucose 114 mg/dl; Hemoglobin A1C 5.6 % (4.5-5.6)
[2023-03-31] MEDS ORDERED: HEPARIN (PORCINE) 1000 UNIT/ML 10 ML (CATH LAB USE ONLY) ONE (08:35)
[2023-03-31] MEDS ORDERED: fentaNYL citrate PF 100 MCG/2 ML VIAL ONE (08:35)
[2023-03-31] MEDS ORDERED: niCARdipine HCL INJ 2.5 MG/ML 10 ML AMP ONE (08:35)
[2023-03-31] MEDS ORDERED: MIDAZOLAM HCL 1 MG/ML 2ML VIAL ONE ×2 (08:35→09:07)
[2023-03-31] MEDS ORDERED: NITROGLYCERIN/D5W 100MCG/ML 20ML SYR ONE (08:36)
[2023-03-31 11:20] LABS: Hematocrit (blood only) 45.9 % (42.0-52.0); Hemoglobin 15.8 g/dl (14.0-18.0); Mean Corpuscular Hemoglobin 31.7 pg (25.0-34.0); Mean Corpuscular Hgb Conc 34.4 g/dL (32.0-36.0); Mean Platelet Volume 9.7 fL (9.4-12.4); Platelet Count 238 K/uL (130-400); RDW Coefficient of Variation 13.6 % (11.5-14.5); RDW Standard Deviation 46.1 fL (36.4-46.3); Red Blood Count 4.99 M/uL (4.70-6.10); White Blood Count 7.08 K/ul (4.8-10.8)
[2023-03-31 11:39] LABS: Magnesium 2.6 mg/dl (1.7-2.4)
[2023-03-31 11:53] LABS: BUN Creatinine Ratio 19.7 (10-20); Calcium 9.1 mg/dl (8.6-10.3); Creatinine Clr Calc Pharmacy 158.3 ml/min; Est GFR (African American) 124.4 ml/min; Est GFR (Non-African American) 107.3 ml/min; Potassium 4.9 mmol/L (3.5-5.1)
[2023-03-31 11:55] LABS: Troponin I High Sensitivity 14090.8 pg/ml (0-20)
--- NOTE | 2023-03-31 17:25 | Electrocardiogram Report ---
Test Reason : Blood Pressure : / mmHG Vent. Rate : 052 BPM Atrial Rate : 052 BPM P-R Int : 160 ms QRS Dur : 098 ms QT Int : 406 ms P-R-T Axes : 035 -26 009 degrees QTc Int : 377 ms Sinus bradycardia Inferior infarct , age undetermined (cited on or before 30-MAR-2023) Anterolateral infarct , age undetermined (cited on or before 30-MAR-2023) Abnormal ECG When compared with ECG of 31-MAR-2023 04:55, Premature ventricular complexes are no longer Present Serial changes of Anterolateral infarct Present Confirmed by Derrick Sorenson ([id number]) on 03/31/2023 5:25:24 PM Referred By: REFERRED SELF Confirmed By:Derrick Sorenson
--- NOTE | 2023-03-31 17:49 | XCELERA ---
[id number] \\[id number]
[2023-03-31 18:06] LABS: Partial Thromboplastin Ratio 1.2; Partial Thromboplastin Time 32.8 Seconds (21.0-31.0)
--- NOTE | 2023-03-31 18:19 | Cardiac Catheterization ---
[facility] Data: Animal Taxonomist Cardiac Status Clinical evaluation leading to the procedure CAD Presenation: Non STEMI Anginal Classification: CCS IV Heart Failure: No Cardiogenic Shock within 24 Hours: No Cardiac Arrest within 24 Hours: No Imaging Studies Past 6 Months: No Stress Studies Past 6 Months: No STEMI OR Non-STEMI Symptom Onset Date: 03/31/23 Symptom Onset Time: 07:00 Coronary Anatomy Dominant: Right Left Main (% Stenosis): Proximal (40 to 50%) LAD (% Stenosis): Proximal (70%) and Mid (100%) D1 (% Stenosis): Normal (Diffuse mild) Circumflex (% Stenosis): Mid (100%) OM1 (% Stenosis): Proximal (80%, 70%) RCA (% Stenosis): Proximal (50 to 70%) R PDA (% Stenosis): Normal R PL1 (% Stenosis): Normal Diagnostic Physicians Name: Jose Vázquez MD, PhD Closure Device Percutaneous Entry Location: Radial Closure Device: Radial Band Recommendations: CABG and Management Recommendatons (Heart team evaluation CABG versus high risk complex PCI) Cardiac Cath Procedure Full Procedure Date March 31, 2023 Pre-Procedure Diagnosis Pre-Procedure Diagnosis: Non STEMI AUC Score AUC Score: 07 Post-Procedure Diagnosis Post-Procedure Diagnosis: Severe CAD Procedure(s) Performed Procedure(s) Performed: Coronary Angiography Bootmaker Hand Jose Vázquez MD, PhD Estimated Blood Loss Estimated Blood Loss: 5 mL Medication(s) Medication(s): Fentanyl, Heparin, Lidocaine 1%, Nicardipine, Nitroglycerin and Versed Summary of Findings Brief description: Patient was brought to the cardiac catheterization suite where he was shaved and prepped in a sterile fashion. Sedated using IV Versed and fentanyl. Soft tissues of the right wrist were anesthetized using 2 mils of 1% Xylocaine. Using the ultrasound for guidance (image saved) the right radial artery was accessed using a modified Seldinger technique and a 6 Micronesian radial artery glide sheath was placed. Patient was provided anticoagulation with IV heparin and antispasmodics including nicardipine and nitroglycerin. All catheters were advanced and exchanged over a 0.035 J-tip wire. Left coronary angiography was performed in orthogonal views with a 5 Mic[place]esian [place] 4 diagnostic catheter and a 5 Micronesian JL 3.5 diagnostic catheter. Right coronary angiography was performed in orthogonal views with a 5 [place] 4 diagnostic catheter. Diagnostic catheters were removed. Radial artery sheath was removed. Hemostasis was obtained using the TR band. Patient remained hemodynamically stable and asymptomatic. He was returned to the recovery area. This ended the case. Coronary angiography: VNX-wnfan-chytbmi vessel which bifurcates into LAD and circumflex. It is moderately calcified with a 40 to 50% stenosis. LAD-large caliber and transapical. Proximal there is a long eccentric 70% stenosis. The vessel provides a septal branch and a large branching first diagonal. The diagonal has diffuse mild to moderate disease. The mid LAD is severely diseased with a 95 to 99% stenosis followed by a 100% occlusion. Distal vessel fills poorly via left to left collateralization. LCx-large caliber and nondominant. Proximal segment is at least moderately calc ified. There is mild disease in the vessel gives rise to an atrial branch and a large branching OM1. The OM1 has a proximal 80% stenosis followed by a 70% stenosis. The mid AV groove circumflex is 100% occluded. A long OM 2 is noted to fill late via left to left collateralization. RCA-large and dominant. Proximal segment has a 50 to 70% focal stenosis and there is diffuse mild disease. Mid vessel has mild luminal irregularities and the distal vessel has mild disease. The vessel bifurcates into a large PDA and a large posterior lateral branch each of which has mild disease. Summary: Severe multivessel coronary artery disease. Recommend evaluation by "heart team" at tertiary center regarding coronary artery bypass grafting versus c omplex high risk PCI. Initiate guideline directed medical therapy for secondary prevention of coronary disease including; low-dose aspirin, high intensity statin therapy, beta- jonathan, plus or minus LOGAN inhibitor/ARB. Hemodynamics Rest Ao:: 133/93 mmHg Final Ao: 116/87 mm jasson LV: Not performed Recommendations Recommendations: CABG and Management Recommendatons (Heart team evaluation CABG versus high risk complex PCI) Radiation Exposure (mGy) 1504 mGy, fluoroscopy time 4.4 minutes Contrast (mls) 100 mL Anesthesia 3 mg IV Versed, 75 mcg IV fentanyl (start 853, and 922) Procedural Complication(s) None Disposition Recovery Room\\PACU I attest to the content of the Intraoperative Record and any orders documented therein. Any exceptions are noted below. [facility] Card Cath Procedure Codes Cardiac Catheterization Procedure 1: Cardiovascular Cath Procedures: 53407 Coronaries Therapeutic Services & Ancillary Procedure 1: Cardiovascular Tx and Anc Procedures: 59693 Ultrasonic Guidance Vascular Access Moderate Sedation Procedure 1: Sedation/Anesthesia: 47462 Mod Sedation by the same physician;Init15 Min Child Age 5 & Up (Initial 15 min, start time 0854) Procedure 2: Sedation/Anesthesia: 70040 Mod Sedation by the same physician; Ea [id number] Minutes (Additional 14 min, end time 0923) PG Care Time/CCT Total # of Minutes Spent Total Time Spent with Patient: Total time spent is greater than 50% in coordination of care (as documented) at patient's floor/unit and/or counseling patient:
--- NOTE | 2023-03-31 19:11 | Cardiology Consultation ---
Date of Consultation March 31, 2023 Assessment & Plan (1) NSTEMI (non-ST elevated myocardial infarction): Multivessel coronary disease. Do not identify any acute lesions. Referral to tertiary center for heart team evaluation. CABG versus complex multivessel PCI. His blood pressure is above target his heart rate is at target. He will be on guideline directed medical therapy using low-dose aspirin, high intensity statin therapy, beta-jonathan, plus or minus LOGAN inhibitor/ARB as tolerated. (2) Hypertension: Blood pressure is elevated. Beginning beta-jonathan. Consider angiotensin receptor jonathan if tolerated. (3) Atherogenic dyslipidemia: Despite the patient's baseline LDL being only around 100, he has severe multivessel disease suggesting that aggressive LDL reduction would be helpful. I believe beginning at a atorvastatin 20 mg daily and titrating up will allow us to recheck an aggressive LDL reduction target. (4) Ischemic cardiomyopathy: Mild LV dysfunction. May improve with revascularization. Does not meet cri teria for LifeVest. Has no evidence of volume overload at this time. Metoprolol succinate ER and hopefully also an angiotensin receptor jonathan or LOGAN inhibitor. Plan Awaiting transfer to [facility] for revascularization. History of Present Illness Reason for Consultation: Non-ST elevation DE Attending Physician: Helene Frye MD History of Present Illness 58-year-old smoker who developed sudden onset chest discomfort while at rest. Described as chest pressure with radiation to the left shoulder. No diaphoresis, nausea, or shortness of breath. He was initially evaluated in the emergency department and had ischemic EKG changes. However, he was provided initial standard therapy and his chest discomfort resolved. Follow-up EKG did not demonstrate the same ischemic changes. General cardiology consult was placed. However, patient then had elevated troponin and I was asked to see him regarding definitive evaluation by coronary angiography. I met the patient in the cardiac cath holding area. There he was without chest pain. I explained to him the abnormality in his cardiac enzymes and my recommendation for definitive evaluation by coronary angiography. Complete informed consent was provided and he agreed to proceed with catheterization. He was therefore taken to the cardiac catheterization suite where he underwent cardiac catheterization via the radial artery approach. This demonstrated severe multivessel coronary disease without any acute culprit lesion identifiable. He was subsequently returned to his room where I informed he and his that my recommendation was for bypass surgery and referral to a tertiary center for heart team evaluation. An echo was ordered and eventually completed. This demonstrated LAD territory wall motion abnormalities and reduced ejection fraction. Patient was initiated on guideline directed medical therapy including aspirin, statin, and beta-jonathan. His heparin drip was restarted after removal of the radial band. He has subsequently been discussed with the cardiac surgeon at [facility]. They have agreed to accept him in transfer for further evaluation and revascularization. Patient has remained without any symptoms for the duration of the day thus far. He and his told me that he has a strong family history of coronary disease. His father had his first myocardial infarction in his 40s. He has several additional events including four-vessel coronary artery bypass grafting and valve replacement at a later date. Patient's mother is also from AMI. This was apparently in her 70s. Allergies Allergy/AdvReac Type Severity Reaction Status Date / Time No Known Allergies Allergy Unknown Verified 03/31/23 08:31 Home Medications Medication Instructions Recorded Confirmed Type acetaminophen 500 mg tablet 1,000 mg PO Q8 PRN pain #90 tabs 05/17/19 03/30/23 Rx (Tylenol Extra Strength) aspirin 81 mg tablet,delayed 81 mg PO DAILY 12/07/21 03/30/23 History release Patient History Medical History Bilateral hip joint arthritis Hypertension started on lisinopril 12/07/21 Osteoarthritis Surgical History H/O bilateral hip replacements History of hand surgery RIGHT-TENDONS History of urinary tract surgery REPAIR/RECONSTRUCTION URETHRAL SURGERY Family History Mother Family history of diabetes mellitus Myocardial infarction Father Myocardial infarction Denies family history of Ovarian cancer Prostate cancer Breast cancer Colorectal cancer Social History Smoking Status: Current every day smoker Tobacco Type: Cigarettes Age Started Using Tobacco: 31; Cigarettes Per Day: 10 CIGS A DAY x 25-30 years; Second Hand Exposure: No; Do You Dip or Chew Tobacco: Yes; Tobacco Cessation Education Requested by Patient: No Hx Alcohol Use: Yes Alcohol type: hard liquor Hx Substance Use: No Preferred Language: Macedonian Communication Ability: Effective Operater Required: No Beliefs That Will Affect Care: None marital status: Current Living Situation: Spouse current occupational status: employed current occupation: self employeed How many Children do You have: 2 Other Information That Helps Us Care for You: No Feels Safe at Home: Yes Safety Concerns: Feels Safe At This Time Childhood Exposure to Second-Hand Smoke: Yes Diet: regular caffeine: Yes Dental Care, Regularly: Yes Physical Activity Frequency: Daily Seatbelt Use: never Sunscreen Use: No Assistive Devices: None Review of Systems Review of Systems: Negative except as per HPI Physical Exam Constitutional: WD/WN, vitals as above (Obese) Eyes: Extraocular muscles intact. Sclera anicteric. ENMT: Oral mucosa is pink moist and intact. Neck: Thick, no JVD or bruits Respiratory: Clear to auscultation bilaterally. No wheezing, rhonchi, or rales. Good air movement Cardiovascular: Regular rate and rhythm. S4 gallop. No rubs or murmurs. No edema. Musculoskeletal: no cyanosis or clubbing, extremities motor strength 5/5 Neurologic: Cognition is intact. Speech is fluent. No focal motor deficits. No tremor. Psychiatric: A+Ox3, euthymic affect Results & Data Vital Signs (Past 12 Hours) Vital Signs Temp Pulse Pulse Resp BP Pulse Ox O2 Del Method 03/31/23 18:36 58 L 03/31/23 17:46 58 L 17 145/82 H 96 Room Air 03/31/23 16:03 36.4 C L 57 L 18 158/99 H 98 Room Air 03/31/23 12:00 59 L 168/85 H 03/31/23 11:09 53 H 142/95 H 97 Room Air 03/31/23 11:00 36.5 C 57 L 20 159/107 H 96 Room Air 03/31/23 10:31 36.4 C L 54 L 20 143/88 H 97 Room Air 03/31/23 10:15 54 L 18 139/89 97 Room Air 03/31/23 10:00 48 L 18 121/84 97 Room Air 03/31/23 09:45 50 L 18 131/98 97 Room Air 03/31/23 09:43 51 L 03/31/23 09:30 57 L 18 134/90 96 Room Air 03/31/23 08:24 54 L 16 161/96 H 98 Room Air 03/31/23 07:53 36.4 C L 54 L 20 164/95 H 97 Room Air PG Care Time/CCT Total # of Minutes Spent Total Time Spent with Patient: Total time spent is greater than 50% in coordination of care (as documented) at patient's floor/unit and/or counseling patient: Coding Level of Care Code 15359 IN/OBS CONSULT LVL 4,60M Diagnoses NSTEMI (non-ST elevated myocardial infarction) I21.4 Hypertension I10 Atherogenic dyslipidemia E78.5 Ischemic cardiomyopathy I25.5
--- NOTE | 2023-03-31 19:28 | Discharge Summary ---
Discharge Summary Date of Service March 31, 2023 Admission HPI Per Admitting Provider This is a 58-year-old male with past medical history significant history of hypertension, osteoarthritis who presents to the emergency department with complaints of chest pain. 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 Patient reports the pain is moderate to severe and nonradiating. Patient had some left shoulder discomfort as well associated with chest discomfort. Patient presented to the ED because he was concerned about the intensity of the pain and patient also reports that his family members has a history of cardiac disease. The time of evaluation in the ED patient chest pain and improved and 10 minutes after arrival to the ED patient reports improvement in chest pain. Patient denies any shortness of breath no fevers or chills reported no nausea vomiting reported Evaluation in the ED initially shows hyperacute T waves but no ST elevation noted. Repeat EKG did not show any ST or T wave changes. Initial high sensitive troponin elevated at 40. Cardiology contacted from ED Patient given aspirin and beta-jonathan is being admitted for further management of his chest pain with NSTEMI Principal Dx & Hospital Course #1 = Principal Diagnosis (1) NSTEMI (non-ST elevated myocardial infarction): Patient presents to ED with complaints of acute onset of chest pain. Chest pain nonradiating and midsternal in location. Associated with no nausea vomiting but reports left shoulder discomfort Risk factors include smoking at least 20 years and Family history significant for coronary artery disease. EKG with anterior ST elevations, hyperacute TWs Initial high sensitive troponin 40 [place] [id number] Cardiology management appreciated--> went for urgent cardiac catheterization which showed: YLS-yddrh-renrase vessel which bifurcates into LAD and circumflex. It is moderately calcified with a 40 to 50% stenosis. LAD-large caliber and transapical. Proximal there is a long eccentric 70% stenosis. The vessel provides a septal branch and a large branching first diagonal. The diagonal has diffuse mild to moderate disease. The mid LAD is severely diseased with a 95 to 99% stenosis followed by a 100% occlusion. Dista l vessel fills poorly via left to left collateralization. LCx-large caliber and nondominant. Proximal segment is at least moderately calcified. There is mild disease in the vessel gives rise to an atrial branch and a large branching OM1. The OM1 has a proximal 80% stenosis followed by a 70% stenosis. The mid AV groove circumflex is 100% occluded. A long OM 2 is noted to fill late via left to left collateralization. RCA-large and dominant. Proximal segment has a 50 to 70% focal stenosis and there is diffuse mild disease. Mid vessel has mild luminal irregularities and the distal vessel has mild disease. The vessel bifurcates into a large PDA and a large posterior lateral branch each of which has mild disease. Summary: Severe multivessel coronary artery disease. Recommend evaluation by "heart team" at tertiary center regarding coronary artery bypass grafting versus complex high risk PCI. Initiate guideline directed medical therapy for secondary prevention of coronary disease including; low-dose aspirin, high intensity statin therapy, beta- jonathan, plus or minus LOGAN inhibitor/ARB. ECHO showed: EF 40-45%, moderate area of mid-distal anteroseptum and apex with hypo or akinesis -continue ASA -started metoprolol, atorvastatin 20mg and titrate up as tolerated as per Cardio logy recommendation -add ACEi or ARB if can tolerate -transfer to [facility] [place] for eval for CABG vs complex PCI -continue tele monitoring-has had several runs of nonsustained VT, asymptomatic- keep lytes replete -follow CBC, BMP, Mag (2) Nicotine dependence: Patient admits to cigarette smoking for at least 20 years half pack a day Smoking cessation discussed with patient Nicotine replacement prn (3) Ischemic cardiomyopathy: as above (4) Hypertension: previously on lisinopril but has not been taking started metoprolol and add on lisinopril or ARB (5) Ventricular tachycardia: as above, nonsustained, asymptomatic monitor on tele associated with MS Plan Dispo-transfer to [facility] [place], accepting physician Dr. Orellana, once bed available Discharge Exam Respiratory normal respiratory effort, lungs clear to auscultation Cardiovascular RRR, no murmur, no edema Gastrointestinal (Abdomen) normal bowel sounds, soft, nontender, no hepatosplenomegaly Neurologic PERRL, EOMI, accommodation nl, no face palsy, no dysarthria moves all extremities; not confused Psychiatric A+Ox3, euthymic affect Updated Medication List Medication Instructions Recorded Confirmed Type acetaminophen 500 mg tablet 1,000 mg PO Q8 PRN pain #90 tabs 05/17/19 03/30/23 Rx (Tylenol Extra Strength) aspirin 81 mg tablet,delayed 81 mg PO DAILY 12/07/21 03/30/23 History release Hospital Stay Data Consultations 03/30/23 22:53 ED Decision to Admit Stat 03/31/23 04:45 Consult Cardiology Routine 03/31/23 19:25 Burn CD for patient Stat Procedures Performed Operation Date: 03/31/23 08:15 Actual Procedures s Cineradiography w/Routine Exam - Jose Vázquez MD, PhD p Cath, Coronaries ONLY (no LV) - Jose Vázquez MD, PhD ECHO Diagnostic Imagining Performed 03/31/23 08:09 CL Cath Imgs for PACS use only Routine Pending Results Patient Have Any Pending Studies at Discharge: No Discharge Instructions Given to Patient (Per Discharging Provider) Transferred to [place] Total Time Total Time Spent Total Time Spent (In Minutes): 90 min Coding Level of Care Code 04309 INP/OBS DISCH >30 MIN Diagnoses NSTEMI (non-ST elevated myocardial infarction) I21.4 Nicotine dependence F17.200 Ischemic cardiomyopathy I25.5 Hypertension I10 Ventricular tachycardia I47.20
[2023-04-01] MEDS: HEPARIN SODIUM/DEXTROSE 25,000 UNITS/500 ML BAG IV SCH ×2 (00:42→15:59)
[2023-04-01 03:33] LABS: Partial Thromboplastin Time 56.7 Seconds (21.0-31.0)
[2023-04-01 07:20] LABS: Basophils # (auto) 0.03 K/uL (0-0.2); Basophils % (auto) 0.4 %; Eosinophils # (auto) 0.17 K/uL (0-0.50); Eosinophils % (auto) 2.3 %; Hematocrit (blood only) 45.6 % (42.0-52.0); Hemoglobin 15.3 g/dl (14.0-18.0); Immature Granulocytes # (auto) 0.04 K/uL (0.01-0.20); Immature Granulocytes % (auto) 0.5 %; Lymphocytes % (auto) 13.4 %; Mean Corpuscular Hemoglobin 31.5 pg (25.0-34.0); Mean Corpuscular Hgb Conc 33.6 g/dL (32.0-36.0); Mean Platelet Volume 10.1 fL (9.4-12.4); Monocytes # (auto) 0.89 K/uL (0.11-0.59); Monocytes % (auto) 11.9 %; Neutrophils # (auto) 5.33 K/uL (1.40-6.50); Neutrophils % (auto) 71.5 %; Platelet Count 249 K/uL (130-400); RDW Coefficient of Variation 13.8 % (11.5-14.5); RDW Standard Deviation 47.4 fL (36.4-46.3); Red Blood Count 4.85 M/uL (4.70-6.10); White Blood Count 7.46 K/ul (4.8-10.8)
[2023-04-01 07:39] LABS: BUN Creatinine Ratio 15.7 (10-20); Calcium 9.4 mg/dl (8.6-10.3); Creatinine Clr Calc Pharmacy 124.3 ml/min; Est GFR (African American) 113.2 ml/min; Est GFR (Non-African American) 97.7 ml/min; Magnesium 2.2 mg/dl (1.7-2.4); Potassium 4.5 mmol/L (3.5-5.1)
[2023-04-01] MEDS ORDERED: ATORVASTATIN 20 MG TAB PO SCH (09:00)
[2023-04-01] MEDS ORDERED: ASPIRIN 81 MG ECTAB PO SCH (09:00)
[2023-04-01] MEDS: METOPROLOL SUCC 25MG EXT REL TAB PO SCH (09:29)
[2023-04-01] MEDS ORDERED: lisinopril 5 MG TAB PO SCH (12:15)
--- NOTE | 2023-04-01 17:46 | Cardiology Progress Note ---
Date of Service April 01, 2023 Assessment & Plan (1) NSTEMI (non-ST elevated myocardial infarction): Plan: Acute on chronic mid LAD occlusion, faint left left collaterals 2. Multivessel CAD40% LMCA, moderate D1, 80% OM 1, 100% mid LCx, 60% mid RCA 3. Moderate LV dysfunctionEF 40 to 45%, LAD distribution wall motion abnormality 4. Hypertension 5. Dyslipidemia Patient chest pain-free. Troponin downtrending Hemodynamically and electrically stable. No signs of heart failure on exam. No apparent access site complications. Reviewed findings of coronary angiography with patient and . Has complex, multivessel disease and agree with transfer to [facility] for discussion of CABG versus complex PCI to LAD, OM1 Continue heparin infusion, aspirin Increase Toprol to 25 mg daily, continue lisinopril 5 Increase atorvastatin 80 mg daily Awaiting transfer to [facility] Admission and Anticipated Discharge Date Admission Date: March 31, 2023 Subjective Feeling well this morning. Reports only brief chest wall "twinges.". Denies significant shortness of breath. Telemetry reviewedno events Review of Systems Review of Systems: All systems reviewed & are unremarkable except as noted in HPI & below Physical Exam Physical Exam: General: Comfortable HEENT: Sclerae anicteric Lungs: Clear to auscultation bilaterally, no crackles or wheezes Cardiac: Regular rate and rhythm, no murmurs. Vascular: Right radial artery access site with no ecchymosis, hematoma. Distal pulse and sensation intact. Abdomen: Soft, nontender Extremities: Well perfused, no peripheral edema Neuro: Nonfocal Psych: Alert orient x3, normal affect and mood Results & Data Vital Signs (Past 12 Hours) Vital Signs Temp Pulse Pulse Resp BP Pulse Ox O2 Del Method 04/01/23 15:44 98.9 F 60 18 136/85 Room Air 04/01/23 15:38 61 04/01/23 12:05 98.6 F 61 20 159/109 H 99 Room Air 04/01/23 07:57 98.2 F 62 16 145/89 H 99 Room Air 04/01/23 07:35 58 L PG Care Time/CCT Total # of Minutes Spent Total Time Spent with Patient: Total time spent is greater than 50% in coordination of care (as documented) at patient's floor/unit and/or counseling patient: Coding Level of Care Code 08702 SUB INP/OBS CARE 3/50MIN Diagnoses NSTEMI (non-ST elevated myocardial infarction) I21.4
[2023-04-01] MEDS ORDERED: METOPROLOL SUCC 25MG EXT REL TAB PO ONE (18:00)
[2023-04-02] MEDS ORDERED: ATORVASTATIN 40 MG TAB PO SCH (09:00)
[2023-04-02] MEDS ORDERED: METOPROLOL SUCC 25MG EXT REL TAB PO SCH (09:00)
== END 2023-04-01 22:55 | disposition short-term general hospital (02) | DRG 281 ==
LOC: ED 20:47 → 4W 03-31 00:48 → SUATTDRO 03-31 00:48 → 4W 03-31 01:57 → 2E 03-31 17:43
PROC: CLB.CCO (2023-03-31 08:15)